=== PATIENT | male | born 1930 | race Caucasian/White ===

== ENCOUNTER 2017-10-14 10:35 | Inpatient (IN) | payer MEDICARE, BC ==
[~2017-10-14] VITALS: Ht 170.2 cm; Wt 69.4 kg
--- NOTE | ~2017-10-14 | CN ---
PATIENT NAME:DOMINICK HERNANDEZ MEDICAL RECORD: [id number] : 34 LOCATION:D. D.2129 ADMIT DATE: 10/14/17 ACCOUNT: [id number] CONSULTING PHYSICIAN: DELVIS MATTHEWS MD REFERRING PHYSICIAN: FARHEEN NIX DO DATE OF CONSULTATION: 10/15/2017 Pulmonary Consultation CONSULT REQUESTING PHYSICIAN: Joseluis Brown DO REASON FOR CONSULTATION: Pneumonia, right lower lobe. HISTORY OF PRESENT ILLNESS: Mr. Hernandez is an 87-year-old gentleman who has a history of heart murmur, remote history of smoking. According to the , he has worsening shortness of breath for the last 2-3 weeks. He was seen in Dr. Brown's office and the chest x-ray showed pneumonia, right lower lobe. Now, he is feeling a little bit better. He has cough without much sputum production. He does not hear himself wheezing. There are no night sweats, no weight loss. REVIEW OF SYSTEMS: Mainly in the history of present illness. PAST MEDICAL HISTORY: 1. Hypertension. 2. Coronary artery disease. 3. History of heart murmur. 4. History of dementia. PAST SURGICAL HISTORY: 1. Cardiac catheterization and stent placement. 2. He has bilateral leg surgery. 3. He has kidney ureteric stent placement. ALLERGIES: There are no known drug allergies. MEDICATIONS: RF Code is reviewed. PERSONAL AND SOCIAL HISTORY: The patient has remote history of smoking. He is a nondrinker. FAMILY HISTORY: Noncontributory. PHYSICAL EXAMINATION: GENERAL: Now, the patient is lying comfortably. He is not in acute distress. VITAL SIGNS: The blood pressure 122/54, pulse is 63, respirations 16, temperature 97.5, SpO2 is 96% on 2 liters nasal cannula. HEENT: Conjunctivae are pink. Sclerae are not icteric. NECK: Supple, no JVD. CHEST: The chest excursion is minimal, but are crackle at the right base. No wheezing. HEART: Rate and rhythm regular with a grade II/ systolic murmur. ABDOMEN: Soft, bowel sounds present. No hepatosplenomegaly. RECTAL: Deferred. EXTREMITIES: No cyanosis, no clubbing, no pedal edema. CENTRAL NERVOUS SYSTEM: The patient is awake and alert. There are no obvious CONSULT REPORT [id number] DOMINICK HERNANDEZ skin abnormalities. The gait was not tested. DIAGNOSTIC STUDIES: Chest radiograph, there are infiltrate in the right lower lobe. The VQ scan is low probability. IMPRESSION: 1. Acute hypoxic respiratory failure. 2. Pneumonia, right lower lobe, most likely community-acquired pneumonia. We doubt aspiration. 3. Ex-smoker, suspect chronic obstructive pulmonary disease. 4. Acute kidney injury on chronic kidney disease. 5. Valvular heart disease, mitral regurgitation. 6. Coronary artery disease. RECOMMENDATION: 1. Continue Levaquin IV, adjust the dose for renal function. 2. Rocephin IV. 3. Follow up labs and chest radiograph. Dr. Brown, thank you for involving me in the care of Mr. Hernandez. TRANSINT:[id number] Voice Confirmation ID: [id number] DOCUMENT ID: [id number] DELVIS MATTHEWS MD at 1110 CC: [id number] DICTATION DATE: 10/15/17 164 WARE TESTER: 10/15/17 1729 ADM IN [place] [address] [place] [address]
[2017-10-14 11:50] LABS: BASOPHILS 0.2 % (0-2); EOSINOPHILS 0.3 % (0-7); HEMATOCRIT 38.3 % (42.0-54.0); HEMOGLOBIN 12.9 g/dL (13.5-17.5); IMMATURE GRANULOCYTES 0.3 % (0-5); LYMPHOCYTES 8.5 % (15-50); MCHC 33.7 g/dL (31.0-37.0); MEAN PLATELET VOLUME 12.3 fL (7.4-10.4); MONOCYTES 8.8 % (2-11); NEUTROPHILS 81.9 % (40-80); PLATELET COUNT 240 10x3/uL (130-400); RBC 4.03 10x6/uL (4.20-6.10); RDW 13.1 % (11.5-14.5); WBC 18.1 10x3/uL (4.8-10.8)
[2017-10-14 12:34] LABS: ALBUMIN 3.3 g/dL (3.4-5.0); CALCIUM 9.5 mg/dL (8.5-10.1); CARBON DIOXIDE 25.5 mmol/L (21.0-32.0); CHLORIDE - SERUM 108 mmol/L (98-107); CKMB 0.5 U/L (0.0-3.6); POTASSIUM - SERUM 4.6 mmol/L (3.5-5.1); PRO BNP 1016 pg/mL (0-450); SODIUM 139 mmol/L (136-145); UREA NITROGEN 34 mg/dL (7-18)
[2017-10-14 12:49] VITALS: BP 101/48
[2017-10-14 12:55] LABS: ALKALINE PHOSPHATASE 55 U/L (46-116); ALT (SGPT) 22 U/L (10-68); BILIRUBIN - TOTAL 0.41 mg/dL (0.2-1.3); CREATININE - SERUM 2.2 mg/dL (0.6-1.3); GLUCOSE 120 mg/dL (74-106); PROTEIN - SERUM 6.7 g/dL (6.4-8.2); eGFR NON AFRICAN AMERICAN 30 mL/min (90-120)
[2017-10-14 12:56] LABS: CALC OSMOLALITY 283 mosm/kg (275-300)
[2017-10-14 12:58] LABS: CREATINE KINASE 35 UL (21-232); TROPONIN-I < 0.017 ng/mL (0.000-0.060)
[2017-10-14 14:00] VITALS: BP 114/56
[2017-10-14 15:00] VITALS: BP 118/77
[2017-10-14 20:48] VITALS: BP 147/60
[2017-10-14 23:50] VITALS: BP 170/59; BMI 24.5
[2017-10-15 01:05] VITALS: BP 127/49; BP 141/75
[2017-10-15 05:15] VITALS: BP 128/58
[2017-10-15 06:25] LABS: BASOPHILS 0.2 % (0-2); EOSINOPHILS 2.9 % (0-7); HEMATOCRIT 35.5 % (42.0-54.0); HEMOGLOBIN 11.8 g/dL (13.5-17.5); IMMATURE GRANULOCYTES 0.3 % (0-5); LYMPHOCYTES 16.6 % (15-50); MCH 31.8 pg (26.0-34.0); MCHC 33.2 g/dL (31.0-37.0); MCV 95.7 fL (80.0-100.0); MEAN PLATELET VOLUME 12.4 fL (7.4-10.4); MONOCYTES 11.5 % (2-11); NEUTROPHILS 68.5 % (40-80); RBC 3.71 10x6/uL (4.20-6.10); RDW 13.3 % (11.5-14.5)
[2017-10-15 06:51] LABS: ANION GAP 10.9 mmol/L (8-16); CALCIUM 8.9 mg/dL (8.5-10.1); CREATININE - SERUM 1.8 mg/dL (0.6-1.3); POTASSIUM - SERUM 3.9 mmol/L (3.5-5.1)
[2017-10-15 06:52] LABS: PLATELET COUNT 182 10x3/uL (130-400); WBC 10.9 10x3/uL (4.8-10.8)
[2017-10-15 08:42] VITALS: BP 155/57
[2017-10-15 12:27] VITALS: BP 122/54
[2017-10-15 13:46] VITALS: Ht 170.2 cm; Wt 69.4 kg
[2017-10-15 16:52] VITALS: BP 143/58
[2017-10-15 20:48] VITALS: BP 141/55
[2017-10-16 05:22] LABS: BASOPHILS 0.5 % (0-2); HEMATOCRIT 35.7 % (42.0-54.0); HEMOGLOBIN 11.7 g/dL (13.5-17.5); IMMATURE GRANULOCYTES 0.5 % (0-5); LYMPHOCYTES 20.7 % (15-50); MCH 31.3 pg (26.0-34.0); MCHC 32.8 g/dL (31.0-37.0); MCV 95.5 fL (80.0-100.0); MONOCYTES 12.8 % (2-11); NEUTROPHILS 61.5 % (40-80); PLATELET COUNT 183 10x3/uL (130-400); RBC 3.74 10x6/uL (4.20-6.10); RDW 13.1 % (11.5-14.5)
[2017-10-16 05:28] LABS: WBC 7.7 10x3/uL (4.8-10.8)
[2017-10-16 05:57] LABS: ALBUMIN 2.9 g/dL (3.4-5.0); ANION GAP 13.1 mmol/L (8-16); BILIRUBIN - TOTAL 0.21 mg/dL (0.2-1.3); CALCIUM 9.1 mg/dL (8.5-10.1); CARBON DIOXIDE 24.8 mmol/L (21.0-32.0); CREATININE - SERUM 1.5 mg/dL (0.6-1.3); MAGNESIUM - SERUM 1.9 mg/dL (1.8-2.4); PHOSPHOROUS 3.2 mg/dL (2.5-4.9); POTASSIUM - SERUM 3.9 mmol/L (3.5-5.1); PROTEIN - SERUM 6.4 g/dL (6.4-8.2); THYROID STIMULATING HORMONE 0.34 uIU/mL (0.36-3.74)
[2017-10-16 06:57] VITALS: BP 141/63
[2017-10-16 09:18] VITALS: BP 164/64
[2017-10-16 12:39] VITALS: BP 144/57
[2017-10-16 16:34] VITALS: BP 149/62
[2017-10-16 21:08] VITALS: BP 148/54
[2017-10-17 01:40] VITALS: BP 119/49
[2017-10-17 05:35] LABS: BASOPHILS 0.4 % (0-2); EOSINOPHILS 7.3 % (0-7); HEMOGLOBIN 10.6 g/dL (13.5-17.5); IMMATURE GRANULOCYTES 0.4 % (0-5); LYMPHOCYTES 17.6 % (15-50); MCHC 33.1 g/dL (31.0-37.0); MCV 93.6 fL (80.0-100.0); MONOCYTES 13.6 % (2-11); NEUTROPHILS 60.7 % (40-80); PLATELET COUNT 174 10x3/uL (130-400); RBC 3.42 10x6/uL (4.20-6.10); WBC 7.1 10x3/uL (4.8-10.8)
[2017-10-17 05:40] VITALS: BP 175/71
[2017-10-17 06:04] LABS: ALBUMIN 2.6 g/dL (3.4-5.0); BILIRUBIN - TOTAL 0.16 mg/dL (0.2-1.3); CALCIUM 8.6 mg/dL (8.5-10.1); CARBON DIOXIDE 24.8 mmol/L (21.0-32.0); CREATININE - SERUM 1.3 mg/dL (0.6-1.3); POTASSIUM - SERUM 3.8 mmol/L (3.5-5.1); PROTEIN - SERUM 5.6 g/dL (6.4-8.2)
[2017-10-17 09:38] VITALS: BP 187/76
[2017-10-17 12:00] VITALS: BP 157/47
[2017-10-17 17:35] VITALS: BP 147/65
[2017-10-17 20:36] VITALS: BP 143/56
[2017-10-18 00:51] VITALS: BP 87/48
[2017-10-18 03:23] LABS: BASOPHILS 0.4 % (0-2); EOSINOPHILS 6.4 % (0-7); HEMATOCRIT 34.4 % (42.0-54.0); HEMOGLOBIN 11.5 g/dL (13.5-17.5); IMMATURE GRANULOCYTES 0.7 % (0-5); LYMPHOCYTES 18.6 % (15-50); MCH 31.1 pg (26.0-34.0); MCHC 33.4 g/dL (31.0-37.0); MEAN PLATELET VOLUME 12.3 fL (7.4-10.4); MONOCYTES 13.5 % (2-11); NEUTROPHILS 60.4 % (40-80); PLATELET COUNT 204 10x3/uL (130-400); RDW 13.1 % (11.5-14.5); WBC 7.6 10x3/uL (4.8-10.8)
[2017-10-18 03:46] LABS: ALBUMIN 2.7 g/dL (3.4-5.0); ANION GAP 11.3 mmol/L (8-16); BILIRUBIN - TOTAL 0.22 mg/dL (0.2-1.3); CALCIUM 8.9 mg/dL (8.5-10.1); CARBON DIOXIDE 27.3 mmol/L (21.0-32.0); CREATININE - SERUM 1.4 mg/dL (0.6-1.3); POTASSIUM - SERUM 3.6 mmol/L (3.5-5.1); PROTEIN - SERUM 6.1 g/dL (6.4-8.2)
[2017-10-18 06:20] VITALS: BP 167/49
[2017-10-18] MEDS ORDERED: LEVAQUIN500 MG PO (07:05)
[2017-10-18] MEDS ORDERED: ALBUTEROL2.5 MG/3 M INH (07:05)
== END 2017-10-18 14:42 | disposition home health service (06) | DRG 682 ==
LOC: D.ER 10:35 → D.EDHOLD 17:03 → D.M2 17:03
PROVIDERS: Family Medicine
DX: N17.9 Acute kidney failure, unspecified (principal); J18.9 Pneumonia, unspecified organism; J96.01 Acute respiratory failure with hypoxia; I34.0 Nonrheumatic mitral (valve) insufficiency; E86.9 Volume depletion, unspecified; F03.90 Unspecified dementia, unspecified severity, without behavioral disturbance, psychotic disturbance, mood disturbance, and anxiety; I25.10 Atherosclerotic heart disease of native coronary artery without angina pectoris; E03.9 Hypothyroidism, unspecified; I12.9 Hypertensive chronic kidney disease with stage 1 through stage 4 chronic kidney disease, or unspecified chronic kidney disease; N18.9 Chronic kidney disease, unspecified; R55 Syncope and collapse; I45.10 Unspecified right bundle-branch block

== ENCOUNTER 2017-12-01 22:54 | Emergency (ER) | payer MEDICARE, BC ==
[~2017-12-01] VITALS: Ht 170.2 cm; Wt 73.6 kg
[~2017-12-01 22:54] MED LIST: ALBUTEROL2.5 MG/3 M INH; LEVAQUIN500 MG PO
[2017-12-01 22:59] VITALS: Ht 170.2 cm; Wt 73.6 kg
[2017-12-01 23:48] LABS: BASOPHILS 0.6 % (0-2); EOSINOPHILS 5.7 % (0-7); HEMATOCRIT 38.9 % (42.0-54.0); HEMOGLOBIN 12.9 g/dL (13.5-17.5); IMMATURE GRANULOCYTES 0.3 % (0-5); MCH 31.5 pg (26.0-34.0); MCHC 33.2 g/dL (31.0-37.0); MCV 95.1 fL (80.0-100.0); MEAN PLATELET VOLUME 12.3 fL (7.4-10.4); MONOCYTES 11.2 % (2-11); NEUTROPHILS 51.2 % (40-80); PLATELET COUNT 216 10x3/uL (130-400); RBC 4.09 10x6/uL (4.20-6.10); RDW 12.9 % (11.5-14.5); WBC 7.1 10x3/uL (4.8-10.8)
[2017-12-02] MEDS ORDERED: LISINOPRIL2.5 MG PO (00:02)
[2017-12-02] MEDS ORDERED: LEVOXYL100 MCG PO (00:02)
[2017-12-02] MEDS ORDERED: PROZAC20 MG PO (00:02)
[2017-12-02] MEDS ORDERED: PROTONIX40 MG PO (00:03)
[2017-12-02] MEDS ORDERED: METOPROLOL TART50 MG PO (00:03)
[2017-12-02] MEDS ORDERED: ZYLOPRIM100 MG PO (00:04)
[2017-12-02] MEDS ORDERED: NORVASC10 MG PO (00:04)
[2017-12-02] MEDS ORDERED: HYDRALAZINE HCL10 MG PO (00:04)
[2017-12-02] MEDS ORDERED: NAMENDA10 MG PO (00:05)
[2017-12-02] MEDS ORDERED: ASPIRIN81 MG PO (00:05)
[2017-12-02] MEDS ORDERED: FENOGLIDE40 MG PO (00:06)
[2017-12-02] MEDS ORDERED: ZANTAC150 MG PO (00:06)
[2017-12-02] MEDS ORDERED: FERROUS SULFAT325 MG PO (00:06)
[2017-12-02] MEDS ORDERED: ARICEPT10 MG PO (00:07)
[2017-12-02] MEDS ORDERED: LIPITOR20 MG PO (00:07)
[2017-12-02] MEDS ORDERED: SEROQUEL50 MG PO (00:07)
[2017-12-02 00:08] LABS: ALBUMIN 3.4 g/dL (3.4-5.0); ANION GAP 9.7 mmol/L (8-16); BILIRUBIN - TOTAL 0.22 mg/dL (0.2-1.3); CALCIUM 9.3 mg/dL (8.5-10.1); CARBON DIOXIDE 29.2 mmol/L (21.0-32.0); CREATININE - SERUM 1.7 mg/dL (0.6-1.3); POTASSIUM - SERUM 3.9 mmol/L (3.5-5.1); PROTEIN - SERUM 6.8 g/dL (6.4-8.2)
[2017-12-02] MEDS ORDERED: TEMAZEPAM30 MG PO (00:08)
[2017-12-02] MEDS ORDERED: MELATONIN10 M1 PO (00:08)
[2017-12-02 00:16] LABS: APPEARANCE CLEAR (CLEAR); BILIRUBIN NEGATIVE (NEGATIVE); COLOR YELLOW (YELLOW); GLUCOSE NEGATIVE (NEGATIVE); KETONE NEGATIVE (NEGATIVE); NITRITE NEGATIVE (NEGATIVE); PROTEIN NEGATIVE (NEGATIVE); SPECIFIC GRAVITY 1.015 (1.005-1.020); UROBILINOGEN NORMAL (NORMAL)
[2017-12-02 00:17] LABS: THYROID STIMULATING HORMONE 0.35 uIU/mL (0.36-3.74)
[2017-12-02 00:55] VITALS: BP 114/66
== END 2017-12-02 00:56 | disposition home or self-care (01) ==
LOC: D.ER 22:54
PROVIDERS: Emergency Medicine
DX: S39.012A Strain of muscle, fascia and tendon of lower back, initial encounter (principal); W18.30XA Fall on same level, unspecified, initial encounter; Y93.89 Activity, other specified; Y92.019 Unspecified place in single-family (private) house as the place of occurrence of the external cause; S16.1XXA Strain of muscle, fascia and tendon at neck level, initial encounter; R00.1 Bradycardia, unspecified; I10 Essential (primary) hypertension; I25.10 Atherosclerotic heart disease of native coronary artery without angina pectoris; F03.90 Unspecified dementia, unspecified severity, without behavioral disturbance, psychotic disturbance, mood disturbance, and anxiety

== ENCOUNTER 2018-06-27 09:29 | Inpatient (IN) | payer MEDICARE, BC ==
[~2018-06-27] VITALS: Ht 170.2 cm; Wt 68.1 kg
[~2018-06-27 09:29] MED LIST changes: +ARICEPT10 MG PO; +ASPIRIN81 MG PO; +FENOGLIDE40 MG PO; +FERROUS SULFAT325 MG PO; +HYDRALAZINE HCL10 MG PO; +LEVOXYL100 MCG PO; +LIPITOR20 MG PO; +LISINOPRIL2.5 MG PO; +MELATONIN10 M1 PO; +METOPROLOL TART50 MG PO; +NAMENDA10 MG PO; +NORVASC10 MG PO; +PROTONIX40 MG PO; +PROZAC20 MG PO; +SEROQUEL50 MG PO; +TEMAZEPAM30 MG PO; +ZANTAC150 MG PO; +ZYLOPRIM100 MG PO
[2018-06-27 10:56] LABS: APPEARANCE CLEAR (CLEAR); BILIRUBIN NEGATIVE (NEGATIVE); COLOR YELLOW (YELLOW); GLUCOSE NEGATIVE (NEGATIVE); KETONE NEGATIVE (NEGATIVE); NITRITE NEGATIVE (NEGATIVE); PROTEIN NEGATIVE (NEGATIVE); UROBILINOGEN NORMAL (NORMAL)
[2018-06-27 11:21] LABS: BASOPHILS 0.4 % (0-2); EOSINOPHILS 2.7 % (0-7); HEMATOCRIT 41.7 % (42.0-54.0); HEMOGLOBIN 13.9 g/dL (13.5-17.5); IMMATURE GRANULOCYTES 0.4 % (0-5); LYMPHOCYTES 14.8 % (15-50); MCH 31.2 pg (26.0-34.0); MCHC 33.3 g/dL (31.0-37.0); MCV 93.7 fL (80.0-100.0); MEAN PLATELET VOLUME 12.6 fL (7.4-10.4); MONOCYTES 10.3 % (2-11); NEUTROPHILS 71.4 % (40-80); RBC 4.45 10x6/uL (4.20-6.10); RDW 13.8 % (11.5-14.5); WBC 11.3 10x3/uL (4.8-10.8)
[2018-06-27 11:26] LABS: PLATELET COUNT 171 10x3/uL (130-400)
[2018-06-27 11:36] LABS: ANION GAP 12.6 mmol/L (8-16); CALCIUM 9.7 mg/dL (8.5-10.1); CARBON DIOXIDE 26.6 mmol/L (21.0-32.0); CREATININE - SERUM 1.5 mg/dL (0.6-1.3); MAGNESIUM - SERUM 2.2 mg/dL (1.8-2.4); POTASSIUM - SERUM 4.2 mmol/L (3.5-5.1)
[2018-06-27 12:00] LABS: BILIRUBIN - TOTAL 0.35 mg/dL (0.2-1.3); PROTEIN - SERUM 6.9 g/dL (6.4-8.2); THYROID STIMULATING HORMONE 0.42 uIU/mL (0.36-3.74)
[2018-06-27 12:22] VITALS: BP 168/63
[2018-06-27 13:47] VITALS: BP 164/48
--- NOTE | 2018-06-27 13:50 | NUR ---
RESTING IN BED. NO C/O. EXPL POC TO S/O: AWAITING BED ASSIGNMENT. VERB UNDER
--- NOTE | 2018-06-27 16:17 | NUR ---
Rehab Prescreening Consult recieved and the chart has been reviewed. He is a new admit today and has several orders pending. Rehab will follow and see how he does with PT/OT and ST to determine his functional needs. Thank you for the referral. Richelle Ugarte RN Clinical Liaison, Rehab
[2018-06-27 16:40] VITALS: BP 182/59
--- NOTE | 2018-06-27 17:30 | NUR ---
NEW PATIENT ADMIT FROM ER. PATIENT ARRIVED TO UNIT VIA STRETCHER AND HOSPITAL PERSONNEL. PATIENT ACCOMPANIED BY SPOUSE. PATIENT IS AWAKE, ALERT AND CONFUSED. IV TO LFA INFUSING NS @ 100ML/HR. VSS. PATIENT DENIES ANY NEEDS OR PAIN. BRIEF CHANGED. WILL CONTINUE WITH PLAN OF CARE.
[2018-06-27 18:02] VITALS: BP 128/59; BMI 23.5
[2018-06-27] MEDS ORDERED: SYNTHROID100 MCG PO (19:20)
[2018-06-27] MEDS ORDERED: CYPROHEPTAD2 MG/5 ML PO (19:21)
[2018-06-27] MEDS ORDERED: STOOL SOFTENER250 MG PO (19:22)
[2018-06-27] MEDS ORDERED: SEROQUEL50 MG PO (19:23)
[2018-06-27] MEDS ORDERED: RANITIDINE HCL150 M1 PO (19:24)
--- NOTE | 2018-06-27 19:37 | NUR ---
EVENING ROUNDS COMPLETED. REPORT RECEIVED. PT LYING IN BED WITH EYES CLOSED, RR EVEN AND UNLABORED. BED IN LOW POSITION. NO S/S OF DISTRESS NOTED. SIDE RAILS UP X2. CALL LIGHT IN REACH. WILL CTM.
[2018-06-27 21:18] VITALS: BP 168/82
--- NOTE | 2018-06-28 03:55 | NUR ---
I have reviewed this patient and I concur with the Shift Assessment completed by the Licensed Practical Nurse today this shift.
[2018-06-28 04:00] VITALS: BP 160/78
--- NOTE | 2018-06-28 05:06 | NUR ---
AFTER EDUCATION PROVIDED TO PT. PT CONTINUES TO REFUSE MORNING LAB DRAWS. PT STATES "THAT DONT MAKE ANY SENSE".
--- NOTE | 2018-06-28 07:58 | NUR ---
REPORT RECEIVED. WILL CONTINUE WITH POC. PT CURRENTLY LYING SUPINE. CALL LIGHT W/I REACH. PT IS RESTING AT THE MOMENT. RR EVEN AND UNLABORED ON RA. LR INFUSING @50ML/HR VIA L.FOR PIV. NO S/S OF DISTRESS NOTED. WILL CTM.
[2018-06-28 08:34] LABS: BASOPHILS 0.4 % (0-2); EOSINOPHILS 4.7 % (0-7); HEMATOCRIT 40.1 % (42.0-54.0); HEMOGLOBIN 13.3 g/dL (13.5-17.5); IMMATURE GRANULOCYTES 0.3 % (0-5); LYMPHOCYTES 21.6 % (15-50); MCH 31.2 pg (26.0-34.0); MCHC 33.2 g/dL (31.0-37.0); MCV 94.1 fL (80.0-100.0); MEAN PLATELET VOLUME 12.9 fL (7.4-10.4); MONOCYTES 7.5 % (2-11); NEUTROPHILS 65.5 % (40-80); PLATELET COUNT 167 10x3/uL (130-400); RBC 4.26 10x6/uL (4.20-6.10); RDW 13.5 % (11.5-14.5); WBC 11.5 10x3/uL (4.8-10.8)
[2018-06-28 08:37] LABS: ANION GAP 13.4 mmol/L (8-16); CALCIUM 9.2 mg/dL (8.5-10.1); CARBON DIOXIDE 25.1 mmol/L (21.0-32.0); CREATININE - SERUM 1.3 mg/dL (0.6-1.3); MAGNESIUM - SERUM 1.8 mg/dL (1.8-2.4)
[2018-06-28 08:42] LABS: POTASSIUM - SERUM 3.5 mmol/L (3.5-5.1)
[2018-06-28 09:24] VITALS: BP 164/33
--- NOTE | 2018-06-28 11:06 | NUR ---
PT CURRENTLY LYING SEMI FOWLERS. CALL LIGHT W/I REACH. BED ALARM TURNED ON. SIDE RAIL UPX3. PT INSTRUCTED TO PRESS CALL LIGHT WHEN NEEDING ASSISTANCE AND THE RISK OF GETTING OUT OF BED ON HIS OWN. PT VERBALIZED UNDERSTANDING. PT DENIES ANY FURTHER NEEDS. WILL CTM.
--- NOTE | 2018-06-28 12:08 | NUR ---
I have reviewed this patient and I concur with the Shift Assessment completed by the Licensed Practical Nurse today this shift.
[2018-06-28 12:32] VITALS: BP 174/65
[2018-06-28 13:26] VITALS: Ht 170.2 cm; Wt 68.1 kg
[2018-06-28 16:05] VITALS: BP 161/70
--- NOTE | 2018-06-28 19:32 | NUR ---
EVENING ROUNDS COMPLETED. REPORT RECEIVED. PT SITTING UP IN BED WITH EYES OPEN, RR EVEN AND UNLABORED. BED IN LOW POSITION. NO S/S OF DISTRESS. ROXI ALARM TURNED ON. INTRODUCED SELF TO PT. PT DENIES FURTHER NEEDS AT THIS TIME. CALL LIGHT IN REACH. WILL CTM.
[2018-06-28 20:00] VITALS: BP 156/63
[2018-06-28 23:56] VITALS: BP 125/63
[2018-06-29 00:16] VITALS: BP 160/58
--- NOTE | 2018-06-29 02:35 | NUR ---
I have reviewed this patient and I concur with the Shift Assessment completed by the Licensed Practical Nurse today this shift.
[2018-06-29 04:25] VITALS: BP 149/58
[2018-06-29 04:58] LABS: BASOPHILS 0.4 % (0-2); EOSINOPHILS 5.9 % (0-7); HEMATOCRIT 36.3 % (42.0-54.0); IMMATURE GRANULOCYTES 0.2 % (0-5); LYMPHOCYTES 16.6 % (15-50); MCH 30.7 pg (26.0-34.0); MCHC 33.1 g/dL (31.0-37.0); MCV 92.8 fL (80.0-100.0); MEAN PLATELET VOLUME 12.7 fL (7.4-10.4); MONOCYTES 10.2 % (2-11); NEUTROPHILS 66.7 % (40-80); PLATELET COUNT 168 10x3/uL (130-400); RBC 3.91 10x6/uL (4.20-6.10); RDW 13.5 % (11.5-14.5)
[2018-06-29 05:06] LABS: WBC 8.5 10x3/uL (4.8-10.8)
[2018-06-29 05:33] LABS: ANION GAP 11.6 mmol/L (8-16); CALCIUM 8.8 mg/dL (8.5-10.1); CARBON DIOXIDE 28.2 mmol/L (21.0-32.0); CREATININE - SERUM 1.5 mg/dL (0.6-1.3); MAGNESIUM - SERUM 1.9 mg/dL (1.8-2.4); POTASSIUM - SERUM 3.8 mmol/L (3.5-5.1)
[2018-06-29 07:49] VITALS: BP 124/62
--- NOTE | 2018-06-29 09:39 | NUR ---
ASSESSMENT DONE. DENIES NEEDS.
[2018-06-29 12:16] VITALS: BP 128/66
--- NOTE | 2018-06-29 14:09 | NUR ---
I have reviewed this patient and I concur with the Shift Assessment completed by the Licensed Practical Nurse today this shift.
[2018-06-29 15:38] VITALS: BP 125/63
--- NOTE | 2018-06-29 17:03 | NUR ---
WITHOUT CHANGES OR DISTRESS NOTED AT THIS TIME. DENIES NEEDS
--- NOTE | 2018-06-29 20:00 | NUR ---
EVENING ROUNDS COMPLETED. REPORT RECEIVED. PT SITTING UP IN BED WITH EYES OPEN, RR EVEN AND UNLABORED. BED IN LOW POSITION. AT BEDSIDE. INTRODUCED SELF TO PT. ASSISTED PT TO AMBULATE TO TOILET. PT MADE IT BACK TO BED AND BED ALARM TURNED BACK ON, SIDE RAILS UP X2. DENIES FURTHER NEEDS AT THIS TIME. CALL LIGHT IN REACH. WILL CTM.
[2018-06-30] VITALS: BP 133/45
--- NOTE | 2018-06-30 02:04 | NUR ---
I have reviewed this patient and I concur with the Shift Assessment completed by the Licensed Practical Nurse today this shift.
[2018-06-30 04:00] VITALS: BP 100/57
[2018-06-30 04:47] LABS: BASOPHILS 0.3 % (0-2); EOSINOPHILS 5.8 % (0-7); HEMATOCRIT 37.2 % (42.0-54.0); HEMOGLOBIN 12.3 g/dL (13.5-17.5); IMMATURE GRANULOCYTES 0.3 % (0-5); LYMPHOCYTES 17.7 % (15-50); MCH 30.8 pg (26.0-34.0); MCHC 33.1 g/dL (31.0-37.0); MCV 93.2 fL (80.0-100.0); MEAN PLATELET VOLUME 12.4 fL (7.4-10.4); NEUTROPHILS 66.9 % (40-80); PLATELET COUNT 169 10x3/uL (130-400); RBC 3.99 10x6/uL (4.20-6.10); RDW 13.6 % (11.5-14.5); WBC 10.1 10x3/uL (4.8-10.8)
[2018-06-30 05:21] LABS: ANION GAP 10.7 mmol/L (8-16); CALCIUM 8.8 mg/dL (8.5-10.1); CARBON DIOXIDE 27.1 mmol/L (21.0-32.0); CREATININE - SERUM 1.4 mg/dL (0.6-1.3); POTASSIUM - SERUM 3.8 mmol/L (3.5-5.1)
--- NOTE | 2018-06-30 07:33 | NUR ---
ROUNDING DONE WITH PATIENT LAYING ON RIGHT SIDE, ROXI ALARM AND BED ALARM IS ON. ON HEART MONITOR SHOWING SR W OCC PVC, HR 56. ON ROOM AIR. RIGHT FA PIV SEEN WITH LR INFUSING AT 100 CC/HR. ON EP WITH K+ 3.8. WILL MONITOR.
[2018-06-30 08:20] VITALS: BP 166/44
[2018-06-30 12:10] VITALS: BP 152/51
--- NOTE | 2018-06-30 13:28 | NUR ---
CLEANED UP FROM INCONT. OF URINE. I DID NOT REPLACE THE DEPENDS THAT WAS ON PATIENT. BLUE CHUX PLACED AND PATIENT IS ROLLED TO RIGHT SIDE FOR COMFORT. ROXI MAT ALARM AND BED ALARM ARE SET.
[2018-06-30 14:52] VITALS: BP 155/51
--- NOTE | 2018-06-30 15:09 | NUR ---
PATIENT CHANGED FROM IN CONT. OF URINE. CLEAN LINENS GIVEN. ROXI MAT AND BED ALARM ON.
--- NOTE | 2018-06-30 17:06 | NUR ---
AT BEDSIDE FOR EVENING MEAL.
--- NOTE | 2018-06-30 18:25 | NUR ---
COMPLETE BED LINEN CHANGE DONE ALONG WITH BATH FOR INCONT. OF URINE. ROXI MAT ALARM AND BED ALARM ARE ON AND SET.
--- NOTE | 2018-06-30 19:24 | NUR ---
INTRODUCED SELF TO PATIENT, RESP EVEN AND UNLABORED. NO S/SX OF DISTRESS AT THIS TIME.
[2018-06-30 20:30] VITALS: BP 148/43
[2018-07-01 00:54] VITALS: BP 144/46
--- NOTE | 2018-07-01 03:58 | NUR ---
PATIENT RESTING QUIETLY WITH EYES CLOSED, RESP EVEN AND UNLABORED. NO S/SX OF DISCOMFORT OR DISTRESS AT THIS TIME.
[2018-07-01 05:41] VITALS: BP 195/70
[2018-07-01 07:24] LABS: BASOPHILS 0.2 % (0-2); EOSINOPHILS 3.3 % (0-7); HEMATOCRIT 35.9 % (42.0-54.0); HEMOGLOBIN 11.9 g/dL (13.5-17.5); IMMATURE GRANULOCYTES 0.5 % (0-5); LYMPHOCYTES 9.1 % (15-50); MCH 30.7 pg (26.0-34.0); MCHC 33.1 g/dL (31.0-37.0); MCV 92.8 fL (80.0-100.0); MEAN PLATELET VOLUME 13.3 fL (7.4-10.4); MONOCYTES 7.8 % (2-11); NEUTROPHILS 79.1 % (40-80); PLATELET COUNT 155 10x3/uL (130-400); RBC 3.87 10x6/uL (4.20-6.10); RDW 13.5 % (11.5-14.5); WBC 10.2 10x3/uL (4.8-10.8)
[2018-07-01 07:32] LABS: ANION GAP 10.3 mmol/L (8-16); CALCIUM 8.9 mg/dL (8.5-10.1); CARBON DIOXIDE 28.4 mmol/L (21.0-32.0); CREATININE - SERUM 1.2 mg/dL (0.6-1.3); MAGNESIUM - SERUM 1.9 mg/dL (1.8-2.4); POTASSIUM - SERUM 3.7 mmol/L (3.5-5.1)
--- NOTE | 2018-07-01 07:38 | NUR ---
REPORT RECEIVED. WILL CONTINUE WITH POC. PT CURRENTLY LYING SUPINE. CALL LIGHT W/I REACH. PT IS AA AND ORIENTED TO SELF ONLY. PT IS BEDFAST. RR EVEN AND UNLABORED ON RA. LR INFUSING @KVO VIA R.FOR PIV. FALL PRECAUTIONS IN PLACE. NO S/S OF DISTRESS NOTED. PT DENIES ANY NEEDS AT THIS TIME. WILL CTM.
[2018-07-01 08:18] VITALS: BP 156/57
--- NOTE | 2018-07-01 12:42 | NUR ---
I have reviewed this patient and I concur with the Shift Assessment completed by the Licensed Practical Nurse today this shift.
[2018-07-01 13:08] VITALS: BP 142/80
--- NOTE | 2018-07-01 14:41 | NUR ---
Per the Edilberto Valdes this patient has refused his OT and ST torres and the family have requested a referral be made to [facility]. Rehab will no longer follow this patient. Richelle Ugarte RN Clinical Liaison, Rehab
--- NOTE | 2018-07-01 15:39 | NUR ---
OT NOTE: PT REQUIRED MAX A WITH SIMPLE HYGIENE TASKS. THANK YOU, FLORES POOL
--- NOTE | 2018-07-01 16:42 | NUR ---
PT CURRENTLY LYING SUPINE. CALL LIGHT W/I REACH. PT IS AA BUT ONLY ORIENTED TO PERSON. PT DENIES ANY NEEDS. NO S/S OF DISTRESS NOTED. FALL PRECAUTIONS IN PLACE. WILL CTM.
--- NOTE | 2018-07-01 19:44 | NUR ---
INTRODUCED SELF TO PATIENT, AT BEDSIDE WANTING TO SHAVE PATIENT. PATIENT RESP EVEN AND UNLABORED, NO S/SX OF DISTRESS OR DISCOMFORT.
[2018-07-01 21:33] VITALS: BP 156/76
[2018-07-02] VITALS (7 sets, daily range): BP systolic 113–159; BP diastolic 60–87
--- NOTE | 2018-07-02 05:05 | NUR ---
PATIENT RESTING QUIETLY WITH EYES CLOSED, RESP EVEN AND UNLABORED AT THIS TIME. NO S/SX OF DISTRESS OR DISCOMFORT NOTED.
[2018-07-02 05:28] LABS: BASOPHILS 0.3 % (0-2); EOSINOPHILS 3.5 % (0-7); HEMATOCRIT 36.2 % (42.0-54.0); IMMATURE GRANULOCYTES 0.2 % (0-5); LYMPHOCYTES 19.2 % (15-50); MCH 30.9 pg (26.0-34.0); MCHC 33.1 g/dL (31.0-37.0); MCV 93.3 fL (80.0-100.0); MEAN PLATELET VOLUME 12.9 fL (7.4-10.4); MONOCYTES 10.9 % (2-11); NEUTROPHILS 65.9 % (40-80); PLATELET COUNT 186 10x3/uL (130-400); RBC 3.88 10x6/uL (4.20-6.10); RDW 13.7 % (11.5-14.5); WBC 9.9 10x3/uL (4.8-10.8)
[2018-07-02 06:04] LABS: ANION GAP 12.4 mmol/L (8-16); CALCIUM 9.1 mg/dL (8.5-10.1); CARBON DIOXIDE 26.2 mmol/L (21.0-32.0); CREATININE - SERUM 1.3 mg/dL (0.6-1.3); MAGNESIUM - SERUM 1.9 mg/dL (1.8-2.4); POTASSIUM - SERUM 3.6 mmol/L (3.5-5.1)
--- NOTE | 2018-07-02 07:05 | NUR ---
RECEIVED REPORT. ASSUMED CARE OF PATIENT. PATIENT RESTING WITH EYES OPEN, CONFUSED. ORIENTED TO NAME. CALL LIGHT WITHIN REACH. IV FLUIDS INFUSING AT KVO. NO DISTRESS. ROXI ALARM TO BED PATENT.
--- NOTE | 2018-07-02 11:26 | MORECARE ---
CASE MANAGEMENT DISCHARGE SUMMARY PATIENT: HUMERA DRAKE UNIT: [id number] ADM DATE: 06/28/18 AGE: 88 : 32 SEX: M ROOM/BED: D.2132 AUTHOR: NELA CHEN PHYSICIAN: REFERRING PHYSICIAN: OBEY ROCHA MD DATE OF SERVICE: 07/02/18 Discharge Plan Patient Name: HUMERA DRAKE [facility] [facility] 1930 Planned Disposition: Group Home Facility Anticipated Discharge Date: 07/02/18 Discharge Date: Expected LOS: 4 Initial Reviewer: [email or web address] Initial Review Date: 06/27/2018 Generated: 07/02/18 12:25 pm Coverage Notice Reviewer: [email or web address] Tala Catherine Notice Issued Date-Time: 07/02/2018 8:50 Notice Type: Patient Choice Letter Notice Delivered To: Patient Relationship to Patient: Developmental Behavioral Physician Name: Delivery Method: HAND - Hand Delivered Jacqueline Days: Prior Verbal Notification: Recipient Understood Notice: Yes Recipient Signature: Yes Med Rec Note Co-signed by Attending: Coverage Notice Comment: [facility] Reviewer: [email or web address] Tala Catherine Notice Issued Date-Time: 07/02/2018 9:00 Notice Type: IM Discharge Notice Notice Delivered To: Patient Relationship to Patient: Developmental Behavioral Physician Name: Delivery Method: HAND - Hand Delivered Jacqueline Days: Prior Verbal Notification: Recipient Understood Notice: Yes Recipient Signature: Yes Med Rec Note Co-signed by Attending: Coverage Notice Comment: Patient Name: HUMERA DRAKE Page [id number] at 1126 All edits/amendments must be made on the electronic document DICTATION DATE: 07/02/18 1125 SPRING CLIPPER: REX 07/02/18 1125 RPT#: [id number] DC DATE: STATUS: ADM IN [place] [address] [place] [address] END OF REPORT
--- NOTE | 2018-07-02 11:30 | NUR ---
PULLED PATIENT UP IN BED. BED ALARMS PATENT. NO DISTRESS. NO FAMILY AT BEDSIDE.
--- NOTE | 2018-07-02 11:33 | MORECARE ---
CASE MANAGEMENT DISCHARGE SUMMARY PATIENT: HUMERA DRAKE UNIT: [id number] ADM DATE: 06/28/18 AGE: 88 : 32 SEX: M ROOM/BED: D.2132 AUTHOR: APRILDOC PHYSICIAN: REFERRING PHYSICIAN: OBEY ROCHA MD DATE OF SERVICE: 07/02/18 Discharge Plan Patient Name: HUMERA DRAKE Facility: [facility]:[place] : 1930 Planned Disposition: Assisted Facility Anticipated Discharge Date: 07/02/18 Discharge Date: Expected LOS: 4 Initial Reviewer: [email or web address] Initial Review Date: 06/27/2018 Generated: 07/02/18 12:33 pm DCPIA - Discharge Planning Initial Assessment Updated by ALONZO: Tripp Catherine on 07/02/18 11:26 am * Is the patient Alert and Oriented? Yes * How many steps to enter\exit or inside your home? * PCP DR. NIX * Pharmacy [facility]. * Preadmission Environment Home with Family * ADLs Partial Dependent * Partial ADLs (Assistance needed) Medication Management Transfers * Equipment Cane Nebulizer Walker Wheelchair * Other Equipment [employer] - MEDICAL EQUIPMENT PROVIDER * List name and contact numbers for known caregivers / representatives who currently or will assist patient after discharge: RYAN DRAKE, SPOUSE, * Verbal permission to speak to the caregivers and representatives has been obtained from the patient. Yes * Community resources currently utilized None * Please name any agencies selected above. NONE * Additional services required to return to the preadmission environment? Yes * Can the patient safely return to the preadmission environment? Yes * Has this patient been hospitalized within the prior 30 days at any hospital? No External Providers External Provider: [facility] Next Contact Date: 07/02/2018 Service Request Date: Service Type: Resolution: Reviewer: Comments: Coverage Notice Reviewer: [email or web address] - Tripp Catherine Notice Issued Date-Time: 07/02/2018 8:50 Notice Type: Patient Choice Letter Notice Delivered To: Patient Relationship to Patient: Grade Setter Name: Delivery Method: HAND - Hand Delivered Jacqueline Days: Prior Verbal Notification: Recipient Understood Notice: Yes Recipient Signature: Yes Med Rec Note Co-signed by Attending: [facility]age [facility] Reviewer: [id number] - Tripp Catherine Notice Issued Date-Time: 07/02/2018 9:00 Notice Type: IM Discharge Notice Notice Delivered To: Patient Relationship to Patient: Grade Setter Name: Delivery Method: HAND - Hand Delivered Jacqueline Days: Prior Verbal Notification: Recipient Understood Notice: Yes Recipient Signature: Yes Med Rec Note Co-signed by Attending: Coverage Notice Comment: Last DP export: 07/02/18 10:25 am Patient Name: HUMERA DRAKE Page [phone] at 1133 All edits/amendments must be made on the electronic document DICTATION DATE: 07/02/181131 EXCELSIOR MACHINE FEEDER: REX 07/02/18 113 RPT#: [id number] DC DATE: STATUS: ADM IN [facility] [address] [place] [address] END OF REPORT
--- NOTE | 2018-07-02 11:59 | MORECARE ---
CASE MANAGEMENT DISCHARGE SUMMARY PATIENT: HUMERA DRAKE UNIT: [id number] ADM DATE: 06/28/18 AGE: 88 : 32 SEX: M ROOM/BED: D.2132 AUTHOR: APRIL,DOC PHYSICIAN: REFERRING PHYSICIAN: OBEY ROCHA MD DATE OF SERVICE: 07/02/18 Discharge Plan Patient Name: HUMERA DRAKE Facility: [facility]:[place] : 1930 Planned Disposition: Residential Facility Anticipated Discharge Date: 07/02/18 Discharge Date: Expected LOS: 4 Initial Reviewer: [email or web address] Initial Review Date: 06/27/2018 Generated: 07/02/18 12:59 pm Comments DCP- Discharge Planning Updated by [email or web address]: Tripp Catherine on 07/02/18 10:[address] Patient Name: HUMERA DRAKE Admission Status: ER Accout number: [id number] Admission Date: 06-28-2018 : 1930 Admission Diagnosis:WEAKNESS Attending: JOSEFINA, Current LOS: 4 Anticipated DC Date: 07-02-2018 Planned Disposition: Residential Facility Primary Insurance: MEDICARE A & B PLANNED EXTERNAL PROVIDER: [facility], MEDICARE REHAB BED Discharge Planning Comments: CM MET WITH PT IN ROOM TO DISCUSS DISCHARGE PLANNING AND NEEDS. PT REPORTS LIVING AT HOME DEPENDENTLY WITH HIS . PT HAS ASSISTANCE WITH MEDICATION MANAGEMENT AND TRANSFERS. PT HAS A CANE, WALKER, WHEELCHAIR AND NEBULIZER FROM [facility]. PT HAS NO OUTSIDE SERVICES ASSISTING IN THE HOME. CM DISCUSSED AVAILABILITY OF HOME HEALTH, REHAB SERVICES AND MEDICAL EQUIPMENT. PT IS IN AGREEMENT WITH REHAB AT [facility]. PT'S SPOUSE TO TRANSPORT HOME AFTER REHAB AT [facility]. LONGTERM FACILITY LISTING PROVIDED, CHOICE FOR [facility] SIGNED. IMPORTANT MESSAGE FROM MEDICARE PROVIDED AND EXPLAINED. CM RECEIVED CALL A SHORT TIME LATER FROM PT'S SPOUSE, RYAN DRAKE, , WHO VERIFIED PLAN FOR REHAB AT [facility], WANTED TO ENSURE THAT EVERYONE COMMUNICATES WITH HER PT HAS DEMENTIA AND HAS TROUBLE REMEMBERING THINGS. CM CALLED [facility], , SPOKE TO DOUGLAS, BED AVAILABLE, DOUGLAS IS FAMILIAR WITH PT SHE HAS DISCUSSED REFERRAL WITH [facility] LAST WEEK; REFERRAL FAXED TO [facility] AT [phone]. CM ASKED FOR ADMISSION DETERMINATION TODAY. CM WAITING ADMISSION DETERMINATION FROM [facility]. Sociology Research Assistant: Tripp Catherine DCPIA - Discharge Planning Initial Assessment Updated by ALONZO: Tripp Catherine on 07/02/18 11:26 am * Is the patient Alert and Oriented? Yes * How many steps to enter\exit or inside your home? * PCP DR. NIX * Pharmacy [facility]. * Preadmission Environment Home with Family * ADLs Partial Dependent * Partial ADLs (Assistance needed) Medication Management Transfers * Equipment Cane Nebulizer Walker Wheelchair * Other Equipment [employer] - MEDICAL EQUIPMENT PROVIDER * List name and contact numbers for known caregivers / representatives who currently or will assist patient after discharge: RYAN DRAKE, SPOUSE, * Verbal permission to speak to the caregivers and representatives has been obtained from the patient. Yes * Community resources currently utilized None * Please name any agencies selected above. NONE * Additional services required to return to the preadmission environment? Yes * Can the patient safely return to the preadmission environment? Yes * Has this patient been hospitalized within the prior 30 days at any hospital? No Coverage Notice Reviewer: [id number] Tala Catherine Notice Issued Date-Time: 07/02/2018 8:50 Notice Type: Patient Choice Letter Notice Delivered To: Patient Relationship to Patient: Lining Closer Name: Delivery Method: HAND - Hand Delivered Jacqueline Days: Prior Verbal Notification: Recipient Understood Notice: Yes Recipient Signature: Yes Med Rec Note Co-signed by Attending: Coverage Notice Comment: [facility] Reviewer: [email or web address] Tala Catherine Notice Issued Date-Time: 07/02/2018 9:00 Notice Type: IM Discharge Notice Notice Delivered To: Patient Relationship to Patient: Lining Closer Name: Delivery Method: HAND - Hand Delivered Jacqueline Days: Prior Verbal Notification: Recipient Understood Notice: Yes Recipient Signature: Yes Med Rec Note Co-signed by Attending: Coverage Notice Comment: Last DP export: 07/02/18 10:33 am Patient Name: HUMERA DRAKE Page [phone] at 1159 All edits/amendments must be made on the electronic document DICTATION DATE: 07/02/181157 DENTAL HYGIENE INSTRUCTOR: REX 07/02/181157 RPT#: [id number] DC DATE: STATUS: ADM IN [facility] [address] [place] [address] END OF REPORT
--- NOTE | 2018-07-02 14:35 | NUR ---
PATIENTS HERE. PATIENT SHAVED. PATIENT SITTING UP IN BED, ALERT. CALL LIGHT WITHIN REACH. NO DISTRESS.
--- NOTE | 2018-07-02 14:40 | NUR ---
Nutrition Follow Up: Cardiac diet with 83% average po intake s/p Speech eval and speech therapist has signed off Last BM 06/30 Pt reports no nutritional requests Reviewed weights with nurse. Pt weighs [address] currently per bed scale [address] following
--- NOTE | 2018-07-02 15:23 | MORECARE ---
CASE MANAGEMENT DISCHARGE SUMMARY PATIENT: HUMERA DRAKE UNIT: [id number] ADM DATE: 06/28/18 AGE: 88 : 32 SEX: M ROOM/BED: D.2132 AUTHOR: APRIL,DOC PHYSICIAN: REFERRING PHYSICIAN: OBEY ROCHA MD DATE OF SERVICE: 07/02/18 Discharge Plan Patient Name: HUMERA DRAKE Facility: [facility]:[place] : 1930 Planned Disposition: Jail Facility Anticipated Discharge Date: 07/02/18 Discharge Date: Expected LOS: 4 Initial Reviewer: [id number] Initial Review Date: 06/27/2018 Generated: 07/02/18 4:22 pm Comments DCP- Discharge Planning Updated by [id number]: Tripp Neely on 07/02/18 2:[address] Patient Name: HUMERA DRAKE Admission Status: ER Accout number: [id number] Admission Date: 06-28-2018 : 1930 Admission Diagnosis:WEAKNESS Attending: JOSEFINA, Current LOS: 4 Anticipated DC Date: 07-02-2018 Planned Disposition: Jail Facility Primary Insurance: MEDICARE A & B PLANNED EXTERNAL PROVIDER: [facility] AND [facility], MEDICARE REHAB BED Discharge Planning Comments: CM MET WITH PT IN ROOM TO DISCUSS DISCHARGE PLANNING AND NEEDS. PT REPORTS LIVING AT HOME DEPENDENTLY WITH HIS . PT HAS ASSISTANCE WITH MEDICATION MANAGEMENT AND TRANSFERS. PT HAS A CANE, WALKER, WHEELCHAIR AND NEBULIZER FROM [facility]. PT HAS NO OUTSIDE SERVICES ASSISTING IN THE HOME. CM DISCUSSED AVAILABILITY OF HOME HEALTH, REHAB SERVICES AND MEDICAL EQUIPMENT. PT IS IN AGREEMENT WITH REHAB AT [facility]. PT'S SPOUSE TO TRANSPORT HOME AFTER REHAB AT [facility]. [facility] FACILITY LISTING PROVIDED, CHOICE FOR [facility] SIGNED. IMPORTANT MESSAGE FROM MEDICARE PROVIDED AND EXPLAINED. CM RECEIVED CALL A SHORT TIME LATER FROM PT'S SPOUSE, RYAN DRAKE, , WHO VERIFIED PLAN FOR REHAB AT [facility], WANTED TO ENSURE THAT EVERYONE COMMUNICATES WITH HER PT HAS DEMENTIA AND HAS TROUBLE REMEMBERING THINGS. CM CALLED [facility], , SPOKE TO DOUGLAS, BED AVAILABLE, DOUGLAS IS FAMILIAR WITH PT SHE HAS DISCUSSED REFERRAL WITH RN NALLELY ORTIZ LAST WEEK; REFERRAL FAXED TO [facility] AT [phone]. CM ASKED FOR ADMISSION DETERMINATION TODAY. CM WAITING ADMISSION DETERMINATION FROM [facility]. Program Proposals Coordinator: Tripp Neely Appended by Tripp Neely on 07/02/2018 15:16 CDT: CM RECEIVED CALL FROM DOUGLAS OF [facility] WHO ASKED IF THE DOCTOR WOULD CONSIDER DIAGNOSIS OF CVA OR [facility] FOR REHAB SERVICES PT IS LISTED WEAKNESS WITH FALLS. DOUGLAS ALSO ASKED WHY PT WAS ON SEROQUEL. CM NOTIFIED [facility] CORRALES WHO INFORMED CM THAT PT DID NOT HAVE A CVA ANT AHT PT'S DIAGNOSIS IS ACUTE ON CHRONIC KIDNEY DISEASE AND WILL REMAIN; SEROQUEL WAS PROBABLY FOR DEMENTIA SYMPTOMS. CM SPOKE TO DOUGLAS OF [facility] WHO REPORTS THEY FOUND DIAGNOSIS OF DEHYDRATION AND WILL USE THAT TO SKILL PT IN FOR REHAB BUT PT WILL HAVE TO BE TAPERED OFF OF SEROQUEL THEIR FACILITY WILL NOT ACCEPT PT TAKING THE MEDICATION WITHOUT TAPER AND PLAN TO DISCONTINUE THE MEDICATION. CM MET WITH PT'S SPOUSE IN ROOM. PT'S SPOUSE WANTS TO TALK TO PT'S PRIMARY DOCTOR, DR. NIX, BEFORE MAKING THE DECISION TO STOP SEROQUEL AND UNDERSTANDS THAT [facility] WANTS TO TAPER THE MEDICATION DOWN TO COMPLETELY STOP, WHICH WILL TAKE APPROXIMATELY 4 WEEKS TO DO SO. PT'S SPOUSE REPORTS PT WILL NOT LIKELY BE IN REHAB THAT LONG AND HER PLAN REMAINS TO BRING PT HOME AFTER REHAB. CM DISCUSSED OTHER OPTIONS FOR REHAB IN [facility] FACILITY. PROVIDER LISTING PROVIDED. SPOUSE SIGNED CONSENT FOR [facility] SECOND CHOICE IN EVENT PT IS DECLINED BY [facility]. [facility] AND CM WAITING PT'S SPOUSE TO GET DETERMINATION FROM DR. NIX IF PT CAN BE TAPERED OF SEROQUEL AT THE HALFWAY IN REHAB. CELSO NEELY, CASE MANAGEMENT DCPIA - Discharge Planning Initial Assessment Updated by [email or web address]: Tripp Neely on 07/02/18 11:26 am * Is the patient Alert and Oriented? Yes * How many steps to enter\exit or inside your home? * PCP DR. NIX * Pharmacy [facility]. * Preadmission Environment Home with Family * ADLs Partial Dependent * Partial ADLs (Assistance needed) Medication Management Transfers * Equipment Cane Nebulizer Walker Wheelchair * Other Equipment [employer] - MEDICAL EQUIPMENT PROVIDER * List name and contact numbers for known caregivers / representatives who currently or will assist patient after discharge: RYAN DRAKE, SPOUSE, * Verbal permission to speak to the caregivers and representatives has been obtained from the patient. Yes * Community resources currently utilized None * Please name any agencies selected above. NONE * Additional services required to return to the preadmission environment? Yes * Can the patient safely return to the preadmission environment? Yes * Has this patient been hospitalized within the prior 30 days at any hospital? No Coverage Notice Reviewer: [id number] Tala Neely Notice Issued Date-Time: 07/02/2018 8:50 Notice Type: Patient Choice Letter Notice Delivered To: Patient Relationship to Patient: Soaking Tank Worker Name: Delivery Method: HAND - Hand Delivered Jacqueline Days: Prior Verbal Notification: Recipient Understood Notice: Yes Recipient Signature: Yes Med Rec Note Co-signed by Attending: Coverage Notice Comment: [facility] Reviewer: [id number] Tala Neely Notice Issued Date-Time: 07/02/2018 9:00 Notice Type: IM Discharge Notice Notice Delivered To: Patient Relationship to Patient: Soaking Tank Worker Name: Delivery Method: HAND - Hand Delivered Jacqueline Days: Prior Verbal Notification: Recipient Understood Notice: Yes Recipient Signature: Yes Med Rec Note Co-signed by Attending: Coverage Notice Comment: Last DP export: 07/02/18 10:59 am Patient Name: HUMERA DRAKE Page [id number] at 1523 All edits/amendments must be made on the electronic document DICTATION DATE: 07/02/181521 BUGGY DRIVER: REX 07/02/181521 RPT#: [id number] DC DATE: STATUS: ADM IN [facility] [address] [place] [address] END OF REPORT
--- NOTE | 2018-07-02 15:42 | NUR ---
OT NOTE: BED MOB WITH MIN/MOD ASSIST. STATIC SITTING BALANCE ON EDGE OF BED WITH SPV; ABLE TO IFRAH GOWN WITH MOD ASSIST. IN ROOM AMBULATION WITH RW AND MOD ASSIST DUE TO UNSTEADY GAIT. PT PERFORMED BETTER ONCE HE WAS IN OPEN HALLWAY, BUT VERY POOR BALANCE DURING IN ROOM AMBULATION. ANGELIA LESTER, OTR/L
--- NOTE | 2018-07-02 16:52 | NUR ---
OT NOTE: PT COMPLETED BED MOB WITH MOD/MAX A. PT COMPLETED EOB SITTING BALANCE WITH MOD A. PT COMPLETED SIMPLE GROOMING AT EOB WITH MOD A, PT REQUIRED MAX VERBAL CUES SECONDARY TO DEMENTIA . THANK YOU, FLORES POOL
--- NOTE | 2018-07-02 17:15 | NUR ---
PATIENT RESTING WITH EYES CLOSED. HAS JUST ARRIVED TO HELP PATIENT EAT PM MEAL. CALL LIGHT WITHIN REACH. NO DISTRESS.
--- NOTE | 2018-07-02 19:36 | NUR ---
PT IN BED LOW POSITION, EYES OPEN, NO IMMEDIATE NEEDS NOTED, FLUIDS AND CALL LIGHT WITHIN REACH, INTRODUCTION TO PT AT BEDSIDE REPORT
--- NOTE | 2018-07-03 02:40 | NUR ---
PT RESTING IN BED, LOW POSITION, EYES CLOSED, AROUSES EASILY TO VOICE, NO IMMEDIATE NEEDS NOTED, FLUIDS AND CALL LIGHT WITHIN REACH
[2018-07-03 04:09] VITALS: BP 150/41
--- NOTE | 2018-07-03 08:20 | NUR ---
RESUMING PT CARE, PT IS LAYING IN BED WITH EYES OPEN AND RESPIRATIONS EVEN AND UNLABORED. SEEMS CONFUSED THIS MORNING, UNABLE TO ANSWER ANY QUESTIONS. SPOUSE IS AT BEDSIDE AND WILL BE HERE TO ASSIST PT WITH FEEDINGS. BED IS IN LOWEST POSITION WITH RAILS UP X2, BED ALARM ACTIVE. CALL LIGHT IN REACH, WILL CONTINUE TO MONITOR AND FOLLOW PLAN OF CARE.
--- NOTE | 2018-07-03 09:44 | NUR ---
I have reviewed this patient and I concur with the Shift Assessment completed by the Licensed Practical Nurse today this shift.
[2018-07-03 09:45] VITALS: BP 180/58
--- NOTE | 2018-07-03 12:43 | NUR ---
OT NOTE: PT SLIGHTLY MORE LETHARGIC TODAY. INCREASED DIFFICULTY WITH COMMANDS, POSSIBLY DUE TO LETHARGY. MAX ASSIST WITH BED MOB; ABLE TO SIT UP ON EDGE OF BED WITHOUT ASSIST, HOWEVERR, CONTINUALLY TRYING TO LIE DOWN. MOD ASSIST FOR SIT TO STAND; MOD ASSIST FOR WALKER MGMT FOR IN ROOM AMBULATION. MOD ASSIST FOR DONNING AND DOFFING GOWN; MOD ASSIST TO IFRAH / DOFF SOCKS. ABLE TO WASH FACE WITH CLOTH AND MIN ASSIST.. MOD CUES TO STAY FOCUSED ON TASKS. ANGELIA LESTER, OTR/L
--- NOTE | 2018-07-03 13:35 | MORECARE ---
CASE MANAGEMENT DISCHARGE SUMMARY PATIENT: HUMERA DRAKE UNIT: [id number] ADM DATE: 06/28/18 AGE: 88 : 32 SEX: M ROOM/BED: D.2132 AUTHOR: APRIL,DOC PHYSICIAN: REFERRING PHYSICIAN: OBEY ROCHA MD DATE OF SERVICE: 07/03/18 Discharge Plan Patient Name: HUMERA DRAKE Facility: [facility]:[place] : 1930 Planned Disposition: Senior Care Facility Anticipated Discharge Date: 07/03/18 Discharge Date: Expected LOS: 5 Initial Reviewer: [id number] Initial Review Date: 06/27/2018 Generated: 07/03/18 2:35 pm Comments DCP- Discharge Planning Updated by [id number]: Tripp Neely on 07/02/18 2:[address] Patient Name: HUMERA DRAKE Admission Status: ER Accout number: [id number] Admission Date: 06-28-2018 : 1930 Admission Diagnosis:WEAKNESS Attending: JOSEFINA, Current LOS: 4 Anticipated DC Date: 07-02-2018 Planned Disposition: Senior Care Facility Primary Insurance: MEDICARE A & B PLANNED EXTERNAL PROVIDER: [facility], MEDICARE REHAB BED Discharge Planning Comments: CM MET WITH PT IN ROOM TO DISCUSS DISCHARGE PLANNING AND NEEDS. PT REPORTS LIVING AT HOME DEPENDENTLY WITH HIS . PT HAS ASSISTANCE WITH MEDICATION MANAGEMENT AND TRANSFERS. PT HAS A CANE, WALKER, WHEELCHAIR AND NEBULIZER FROM [facility]. PT HAS NO OUTSIDE SERVICES ASSISTING IN THE HOME. CM DISCUSSED AVAILABILITY OF HOME HEALTH, REHAB SERVICES AND MEDICAL EQUIPMENT. PT IS IN AGREEMENT WITH REHAB AT [facility]. PT'S SPOUSE TO TRANSPORT HOME AFTER REHAB AT [facility]. [facility] FACILITY LISTING PROVIDED, CHOICE FOR [facility] SIGNED. IMPORTANT MESSAGE FROM MEDICARE PROVIDED AND EXPLAINED. CM RECEIVED CALL A SHORT TIME LATER FROM PT'S SPOUSE, RYAN DRAKE, , WHO VERIFIED PLAN FOR REHAB AT [facility], WANTED TO ENSURE THAT EVERYONE COMMUNICATES WITH HER PT HAS DEMENTIA AND HAS TROUBLE REMEMBERING THINGS. CM CALLED [facility], , SPOKE TO DOUGLAS, BED AVAILABLE, DOUGLAS IS FAMILIAR WITH PT SHE HAS DISCUSSED REFERRAL WITH RN NALLELY ORTIZ LAST WEEK; REFERRAL FAXED TO [facility] AT [phone]. CM ASKED FOR ADMISSION DETERMINATION TODAY. CM WAITING ADMISSION DETERMINATION FROM [facility]. Inseam Trimming Machine Operator: Tripp Neely Appended by Tripp Neely on 07/02/2018 15:16 CDT: CM RECEIVED CALL FROM DOUGLAS OF [facility] WHO ASKED IF THE DOCTOR WOULD CONSIDER DIAGNOSIS OF CVA OR [facility] FOR REHAB SERVICES PT IS LISTED WEAKNESS WITH FALLS. DOUGLAS ALSO ASKED WHY PT WAS ON SEROQUEL. CM NOTIFIED [facility] CORRALES WHO INFORMED CM THAT PT DID NOT HAVE A CVA ANT AHT PT'S DIAGNOSIS IS ACUTE ON CHRONIC KIDNEY DISEASE AND WILL REMAIN; SEROQUEL WAS PROBABLY FOR DEMENTIA SYMPTOMS. CM SPOKE TO DOUGLAS OF [facility] WHO REPORTS THEY FOUND DIAGNOSIS OF DEHYDRATION AND WILL USE THAT TO SKILL PT IN FOR REHAB BUT PT WILL HAVE TO BE TAPERED OFF OF SEROQUEL THEIR FACILITY WILL NOT ACCEPT PT TAKING THE MEDICATION WITHOUT TAPER AND PLAN TO DISCONTINUE THE MEDICATION. CM MET WITH PT'S SPOUSE IN ROOM. PT'S SPOUSE WANTS TO TALK TO PT'S PRIMARY DOCTOR, DR. NIX, BEFORE MAKING THE DECISION TO STOP SEROQUEL AND UNDERSTANDS THAT [facility] WANTS TO TAPER THE MEDICATION DOWN TO COMPLETELY STOP, WHICH WILL TAKE APPROXIMATELY 4 WEEKS TO DO SO. PT'S SPOUSE REPORTS PT WILL NOT LIKELY BE IN REHAB THAT LONG AND HER PLAN REMAINS TO BRING PT HOME AFTER REHAB. CM DISCUSSED OTHER OPTIONS FOR REHAB IN [facility]AC[facility]. PROVIDER LISTING PROVIDED. SPOUSE SIGNED CONSENT FOR [facility] SECOND CHOICE IN EVENT PT IS DECLINED BY [facility]. [facility] AND CM WAITING PT'S SPOUSE TO GET DETERMINATION FROM DR. NIX IF PT CAN BE TAPERED OF SEROQUEL AT THE RETIREMENT IN REHAB. CELSO NEELY, CASE MANAGEMENT DCPIA - Discharge Planning Initial Assessment Updated by [id number]: Tripp Neely on 07/02/18 11:26 am * Is the patient Alert and Oriented? Yes * How many steps to enter\exit or inside your home? * PCP DR. NIX * Pharmacy [facility]. * Preadmission Environment Home with Family * ADLs Partial Dependent * Partial ADLs (Assistance needed) Medication Management Transfers * Equipment Cane Nebulizer Walker Wheelchair * Other Equipment [employer] - MEDICAL EQUIPMENT PROVIDER * List name and contact numbers for known caregivers / representatives who currently or will assist patient after discharge: RYAN DRAKE, SPOUSE, * Verbal permission to speak to the caregivers and representatives has been obtained from the patient. Yes * Community resources currently utilized None * Please name any agencies selected above. NONE * Additional services required to return to the preadmission environment? Yes * Can the patient safely return to the preadmission environment? Yes * Has this patient been hospitalized within the prior 30 days at any hospital? No External Providers External Provider: [facility] Next Contact Date: 07/03/2018 Service Request Date: Service Type: Resolution: Reviewer: Comments: Coverage Notice Reviewer: [id number] Neely Notice Issued Date-Time: 07/02/2018 8:50 Notice Type: Patient Choice Letter Notice Delivered To: Patient Relationship to Patient: Lpn Rn Name: Delivery Method: HAND - Hand Delivered Jacqueline Days: Prior Verbal Notification: Recipient Understood Notice: Yes Recipient Signature: Yes Med Rec Note Co-signed by Attending: Coverage Notice Comment: [facility] Reviewer: [id number] Neely Notice Issued Date-Time: 07/02/2018 9:00 Notice Type: IM Discharge Notice Notice Delivered To: Patient Relationship to Patient: Lpn Rn Name: Delivery Method: HAND - Hand Delivered Jacqueline Days: Prior Verbal Notification: Recipient Understood Notice: Yes Recipient Signature: Yes Med Rec Note Co-signed by Attending: Coverage Notice Comment: Reviewer: ALONZO Neely Notice Issued Date-Time: 07/02/2018 15:00 Notice Type: Patient Choice Letter Notice Delivered To: Family Member Relationship to Patient: Spouse Lpn Rn Name: RYAN DRAKE Delivery Method: HAND - Hand Delivered Jacqueline Days: Prior Verbal Notification: Recipient Understood Notice: Yes Recipient Signature: Yes Med Rec Note Co-signed by Attending: Coverage Notice Comment: Last DP export: 07/02/18 2:22 pm Patient Name: HUMERA DRAKE Page 56215 at 1335 All edits/amendments must be made on the electronic document DICTATION DATE: 07/03/18 1332 MASSAGE THERAPY INSTRUCTOR: REX 07/03/18 1333 RPT#: [id number] DC DATE: STATUS: ADM IN [facility] [address] [place] [address] END OF REPORT
--- NOTE | 2018-07-03 13:44 | MORECARE ---
CASE MANAGEMENT DISCHARGE SUMMARY PATIENT: HUMERA DRAKE UNIT: [id number] ADM DATE: 06/28/18 AGE: 88 : 32 SEX: M ROOM/BED: D.2132 AUTHOR: APRIL,DOC PHYSICIAN: REFERRING PHYSICIAN: OBEY ROCHA MD DATE OF SERVICE: 07/03/18 Discharge Plan Patient Name: HUMERA DRAKE Facility: [facility]:[place] : 1930 Planned Disposition: Snf Facility Anticipated Discharge Date: 07/03/18 Discharge Date: Expected LOS: 5 Initial Reviewer: [id number] Initial Review Date: 06/27/2018 Generated: 07/03/18 2:43 pm Comments DCP- Discharge Planning Updated by [id number]: Tripp Neely on 07/03/18 12:[address] Patient Name: HUMREA DRAKE Encounter No: [id number] : 1930 Primary Insurance: MEDICARE A & B Anticipated DC Date: 07-03-2018 Planned Disposition: Snf Facility External Planned Provider: [facility], MEDICARE REHAB BED DCP follow-up note: CM SPOKE TO PT'S SPOUSE AT [facility] AT ABOUT 1315 HOURS; PT'S SPOUSE ADVISED THAT SHE SPOKE TO DR. INX, PT'S PCP, AND HE WAS OK WITH TAPER OF SEROQUEL AT [facility]. PT'S SPOUSE INFORMED CM THAT SHE WOULD LIKE CM TO TRY REFERRAL TO [facility] FIRST AND IF THEY WILL NOT ACCEPT PT, THEN SHE WILL LET PT GO TO REHAB AT [facility] WITH TAPER OF SEROQUEL. CM NOTIFIED ARUN OF [facility] OF REFERRAL, [facility] MAY CONSIDER PT ON SEROQUEL; CM FAXED REFERRAL INFORMATION TO [facility] AT [phone]. CM WAITING ADMISSION FROM [facility]. PT'S SPOUSE STATES THAT IF DECLINED BY [facility], PT WILL GO TO [facility] AND CAN HAVE SEROQUEL TAPER PER HER CONVERSATION WITH PT'S PCP, DR. FARHEEN NIX. Tripp Neely, CASE MANAGEMENT DCP- Discharge Planning Updated by [id number]: Tripp Neely on 07/02/18 2:[address] Patient Name: HUMERA DRAKE Admission Status: ER Accout number: [id number] Admission Date: 06-28-2018 : 1930 Admission Diagnosis:WEAKNESS Attending: JOSEFINA Current LOS: 4 Anticipated DC Date: 07-02-2018 Planned Disposition: Snf Facility Primary Insurance: MEDICARE A & B PLANNED EXTERNAL PROVIDER: [facility], MEDICARE REHAB BED Discharge Planning Comments: CM MET WITH PT IN ROOM TO DISCUSS DISCHARGE PLANNING AND NEEDS. PT REPORTS LIVING AT HOME DEPENDENTLY WITH HIS . PT HAS ASSISTANCE WITH MEDICATION MANAGEMENT AND TRANSFERS. PT HAS A CANE, WALKER, WHEELCHAIR AND NE[facility]ULIZER [facility]. PT HAS NO OUTSIDE SERVICES ASSISTING IN THE HOME. CM DISCUSSED AVAILABILITY OF HOME HEALTH, REHAB SERVICES AND MEDICAL EQUIPMENT. PT IS IN AGREEMENT WITH REHAB AT [facility]. PT'S SPOUSE TO TRANSPORT HOME AFTER REHAB AT [facility]. [facility] FACILITY LISTING PROVIDED, CHOICE FOR [facility] SIGNED. IMPORTANT MESSAGE FROM MEDICARE PROVIDED AND EXPLAINED. CM RECEIVED CALL A SHORT TIME LATER FROM PT'S SPOUSE, RYAN DRAKE, , WHO VERIFIED PLAN FOR REHAB AT [facility], WANTED TO ENSURE THAT EVERYONE COMMUNICATES WITH HER PT HAS DEMENTIA AND HAS TROUBLE REMEMBERING THINGS. CM CALLED [facility], , SPOKE TO DOUGLAS, BED AVAILABLE, DOUGLAS IS FAMILIAR WITH PT SHE HAS DISCUSSED REFERRAL WITH RN NALLELY ORTIZ LAST WEEK; REFERRAL FAXED TO [facility] AT [phone]. CM ASKED FOR ADMISSION DETERMINATION TODAY. CM WAITING ADMISSION DETERMINATION FROM [facility]. Guard Sergeant: Tripp Neely Appended by Tripp Neely on 07/02/2018 15:16 CDT: CM RECEIVED CALL FROM DOUGLAS OF [facility] WHO ASKED IF THE DOCTOR WOULD CONSIDER DIAGNOSIS OF CVA OR [facility] FOR REHAB SERVICES PT IS LISTED WEAKNESS WITH FALLS. DOUGLAS ALSO ASKED WHY PT WAS ON SEROQUEL. CM NOTIFIED PRATEEK CORRALES WHO INFORMED CM THAT PT DID NOT HAVE A CVA ANT AHT PT'S DIAGNOSIS IS ACUTE ON CHRONIC KIDNEY DISEASE AND WILL REMAIN; SEROQUEL WAS PROBABLY FOR DEMENTIA SYMPTOMS. CM SPOKE TO DOUGLAS OF [facility] WHO REPORTS THEY FOUND DIAGNOSIS OF DEHYDRATION AND WILL USE THAT TO SKILL PT IN FOR REHAB BUT PT WILL HAVE TO BE TAPERED OFF OF SEROQUEL THEIR FACILITY WILL NOT ACCEPT PT TAKING THE MEDICATION WITHOUT TAPER AND PLAN TO DISCONTINUE THE MEDICATION. CM MET WITH PT'S SPOUSE IN ROOM. PT'S SPOUSE WANTS TO TALK TO PT'S PRIMARY DOCTOR, DR. NIX, BEFORE MAKING THE DECISION TO STOP SEROQUEL AND UNDERSTANDS THAT [facility] WANTS TO TAPER THE MEDICATION DOWN TO COMPLETELY STOP, WHICH WILL TAKE APPROXIMATELY 4 WEEKS TO DO SO. PT'S SPOUSE REPORTS PT WILL NOT LIKELY BE IN REHAB THAT LONG AND HER PLAN REMAINS TO BRING PT HOME AFTER REHAB. CM DISCUSSED OTHER OPTIONS FOR REHAB IN [facility] FACILITY. PROVIDER LISTING PROVIDED. SPOUSE SIGNED CONSENT FOR [facility] SECOND CHOICE IN EVENT PT IS DECLINED BY [facility]. [facility] AND CM WAITING PT'S SPOUSE TO GET DETERMINATION FROM DR. NIX IF PT CAN BE TAPERED OF SEROQUEL AT THE HALFWAY IN REHAB. CELSO NEELY, CASE MANAGEMENT DCPIA - Discharge Planning Initial Assessment Updated by [id number]: Tripp Neely on 07/02/18 11:26 am * Is the patient Alert and Oriented? Yes * How many steps to enter\exit or inside your home? * PCP DR. NIX * Pharmacy [facility]. * Preadmission Environment Home with Family * ADLs Partial Dependent * Partial ADLs (Assistance needed) Medication Management Transfers * Equipment Cane Nebulizer Walker Wheelchair * Other Equipment [employer] - MEDICAL EQUIPMENT PROVIDER * List name and contact numbers for known caregivers / representatives who currently or will assist patient after discharge: RYAN DRAKE, SPOUSE, * Verbal permission to speak to the caregivers and representatives has been obtained from the patient. Yes * Community resources currently utilized None * Please name any agencies selected above. NONE * Additional services required to return to the preadmission environment? Yes * Can the patient safely return to the preadmission environment? Yes * Has this patient been hospitalized within the prior 30 days at any hospital? No Coverage Notice Reviewer: [id number] Neely Notice Issued Date-Time: 07/02/2018 15:00 Notice Type: Patient Choice Letter Notice Delivered To: Family Member Relationship to Patient: Spouse Supervisor Wet Room Name: RYAN DRAKE Delivery Method: HAND - Hand Delivered Jacqueline Days: Prior Verbal Notification: Recipient Understood Notice: Yes Recipient Signature: Yes Med Rec Note Co-signed by Attending: Coverage Notice Comment: Reviewer: [id number] Neely Notice Issued Date-Time: 07/02/2018 8:50 Notice Type: Patient Choice Letter Notice Delivered To: Patient Relationship to Patient: Supervisor Wet Room Name: Delivery Method: HAND - Hand Delivered Jacqueline Days: Prior Verbal Notification: Recipient Understood Notice: Yes Recipient Signature: Yes Med Rec Note Co-signed by Attending: Coverage Notice Comment: [facility] Reviewer: [id number] Tala Neely Notice Issued Date-Time: 07/02/2018 9:00 Notice Type: IM Discharge Notice Notice Delivered To: Patient Relationship to Patient: Supervisor Wet Room Name: Delivery Method: HAND - Hand Delivered Jacqueline Days: Prior Verbal Notification: Recipient Understood Notice: Yes Recipient Signature: Yes Med Rec Note Co-signed by Attending: Coverage Notice Comment: Last DP export: 07/03/18 12:35 p Patient Name: HUMERA DRAKE Page [id number] at 1344 All edits/amendments must be made on the electronic document DICTATION DATE: 07/03/18 1343 SCHOOL CROSSING GUARD SUPERVISOR: REX 07/03/18 1343 RPT#: [id number] DC DATE: STATUS: ADM IN [facility] [address] [place] [address] END OF REPORT
--- NOTE | 2018-07-03 15:50 | NUR ---
OT NOTE: PT COMPLETED GROOMING AND HYGIENE TASKS WITH ANGELA Beebe. PT COMPLETED BED MOB IWTH ANGELA Beebe, THANK YOU, FLORES POOL
[2018-07-03 15:52] VITALS: BP 149/89
--- NOTE | 2018-07-03 16:48 | MORECARE ---
CASE MANAGEMENT DISCHARGE SUMMARY PATIENT: HUMERA DRAKE UNIT: [id number] ADM DATE: 06/28/18 AGE: 88 : 32 SEX: M ROOM/BED: D.2132 AUTHOR: APRILDOC PHYSICIAN: REFERRING PHYSICIAN: OBEY ROCHA MD DATE OF SERVICE: 07/03/18 Discharge Plan Patient Name: HUMERA DRAKE Facility: [facility]:[place] : 1930 Planned Disposition: Long Term Facility Anticipated Discharge Date: 07/04/18 Discharge Date: Expected LOS: 6 Initial Reviewer: [id number] Initial Review Date: 06/27/2018 Generated: 07/03/18 5:48 pm Comments DCP- Discharge Planning Updated by [email or web address]: Tripp Neely on 07/03/18 3:[address] Patient Name: HUMERA DRAKE Admission Status: ER Accout number: [id number] Admission Date: 06-28-2018 : 1930 Admission Diagnosis:WEAKNESS Attending: JOSEFINA, Current LOS: 5 Anticipated DC Date: 07-04-2018 Planned Disposition: Long Term Facility Primary Insurance: MEDICARE A & B PLANNED EXTERNAL PROVIDER: [facility], MEDICARE REHAB BED Discharge Planning Comments: CM RECEIVED CALL FROM ARUN OF [facility], THEY WILL NOT ACCEPT TODAY IT IS TOO LATE, WILL ACCEPT TOMORROW AND INFORMATION TECHNOLOGY PROGRAM MANAGER AT 0800 [place]. ARUN HAS NOTIFIED PT'S SPOUSE WHO IS ALSO IN AGREEMENT WITH PLAN. EXHIBIT ELECTRICIAN NURSE NOTIFIED. FOR DISCHARGE 07-04-18, FAX DISCHARGE INFORMATION TO [facility] AT [phone]. CALL NURSE REPORT TO [facility] AT [phone]. [facility] TO INFORMATION TECHNOLOGY PROGRAM MANAGER [place] AT 0800 AM. Head Men'S Tennis Coach: Tripp Neely DCP- Discharge Planning Updated by [email or web address]: Tripp Neely on 07/03/18 12:[address] Patient Name: HUMERA DRAKE Encounter No: [id number] : 1930 Primary Insurance: MEDICARE A & B Anticipated DC Date: 07-03-2018 Planned Disposition: Long Term Facility External Planned Provider: [facility], MEDICARE REHAB BED DCP follow-up note: CM SPOKE TO PT'S SPOUSE AT NURSES STATION AT ABOUT 1315 HOURS; PT'S SPOUSE ADVISED THAT SHE SPOKE TO DR. NIX, PT'S PCP, AND HE WAS OK WITH TAPER OF SEROQUEL AT [facility]. PT'S SPOUSE INFORMED CM THAT SHE WOULD LIKE CM TO TRY REFERRAL TO [facility] FIRST AND IF THEY WILL NOT ACCEPT PT, THEN SHE WILL LET PT GO TO REHAB AT [facility] WITH TAPER OF SEROQUEL. CM NOTIFIED ARUN MARRUFO [facility] OF REFERRAL, [facility] MAY CONSIDER PT ON SEROQUEL; CM FAXED REFERRAL INFORMATION TO [facility] AT [phone]. CM WAITING ADMISSION FROM [facility]. PT'S SPOUSE STATES THAT IF DECLINED BY [facility], PT WILL GO TO [facility] AND CAN HAVE SEROQUEL TAPER PER HER CONVERSATION WITH PT'S PCP, DR. FARHEEN NIX. Tripp Neely, CASE MANAGEMENT DCP- Discharge Planning Updated by [id number]: Tripp Neely on 07/02/18 2:[address] Patient Name: HUMERA DRAKE Admission Status: ER Accout number: [id number] Admission Date: 06-28-2018 : 1930 Admission Diagnosis:WEAKNESS Attending: JOSEFINA Current LOS: 4 Anticipated DC Date: 07-02-2018 Planned Disposition: Long Term Facility Primary Insurance: MEDICARE A & B PLANNED EXTERNAL PROVIDER: [facility] Discharge Planning Comments: CM MET WITH PT IN ROOM TO DISCUSS DISCHARGE PLANNING AND NEEDS. PT REPORTS LIVING AT HOME DEPENDENTLY WITH HIS . PT HAS ASSISTANCE WITH MEDICATION MANAGEMENT AND TRANSFERS. PT HAS A CANE, WALKER, WHEELCHAIR AND NEBULIZER FROM [facility]. PT HAS NO OUTSIDE SERVICES ASSISTING IN THE HOME. CM DISCUSSED AVAILABILITY OF HOME HEALTH, REHAB SERVICES AND MEDICAL EQUIPMENT. PT IS IN AGREEMENT WITH REHAB AT [facility]. PT'S SPOUSE TO TRANSPORT HOME AFTER REHAB AT [facility]. DETENTION FACILITY LISTING PROVIDED, CHOICE FOR [facility] SIGNED. IMPORTANT MESSAGE FROM MEDICARE PROVIDED AND EXPLAINED. CM RECEIVED CALL A SHORT TIME LATER FROM PT'S SPOUSE, RYAN DRAKE, , WHO VERIFIED PLAN FOR REHAB AT [facility], WANTED TO ENSURE THAT EVERYONE COMMUNICATES WITH HER PT HAS DEMENTIA AND HAS TROUBLE REMEMBERING THINGS. CM CALLED [facility], , SPOKE TO DOUGLAS, BED AVAILABLE, DOUGLAS IS FAMILIAR WITH PT SHE HAS DISCUSSED REFERRAL WITH RN [facility] LAST WEEK; REFERRAL FAXED TO [facility] AT [phone]. CM ASKED FOR ADMISSION DETERMINATION TODAY. CM [facility] Head Men'S Tennis Coach: Tripp Neely Appended by Tripp Neely on 07/02/2018 15:16 CDT: CM RECEIVED CALL FROM DOUGLAS OF [facility] WHO ASKED IF THE DOCTOR WOULD CONSIDER DIAGNOSIS OF CVA OR [facility] FOR REHAB SERVICES PT IS LISTED WEAKNESS WITH FALLS. DOUGLAS ALSO ASKED WHY PT WAS ON SEROQUEL. CM NOTIFIED [facility] WHO INFORMED CM THAT PT DID NOT HAVE A CVA ANT T PT'S DIAGNOSIS IS ACUTE ON CHRONIC KIDNEY DISEASE AND WILL REMAIN; SEROQUEL WAS PROBABLY FOR DEMENTIA SYMPTOMS. CM SPOKE TO DOUGLAS OF [facility] WHO REPORTS THEY FOUND DIAGNOSIS OF DEHYDRATION AND WILL USE THAT TO SKILL PT IN FOR REHAB BUT PT WILL HAVE TO BE TAPERED OFF OF SEROQUEL THEIR FACILITY WILL NOT ACCEPT PT TAKING THE MEDICATION WITHOUT TAPER AND PLAN TO DISCONTINUE THE MEDICATION. CM MET WITH PT'S SPOUSE IN ROOM. PT'S SPOUSE WANTS TO TALK TO PT'S PRIMARY DOCTOR, DR. NIX, BEFORE MAKING THE DECISION TO STOP SEROQUEL AND UNDERSTANDS THAT [facility] WANTS TO TAPER THE MEDICATION DOWN TO COMPLETELY STOP, WHICH WILL TAKE APPROXIMATELY 4 WEEKS TO DO SO. PT'S SPOUSE REPORTS PT WILL NOT LIKELY BE IN REHAB THAT LONG AND HER PLAN REMAINS TO BRING PT HOME AFTER REHAB. CM DISCUSSED OTHER OPTIONS FOR REHAB IN DETENTION FACILITY. PROVIDER LISTING PROVIDED. SPOUSE SIGNED CONSENT FOR [facility] CHOICE IN EVENT PT IS DECLINED BY [facility]. [facility] AND CM WAITING PT'S SPOUSE TO GET DETERMINATION FROM DR. NIX IF PT CAN BE TAPERED OF SEROQUEL AT THE CARE HOME IN REHAB. CELSO NEELY, CASE MANAGEMENT DCPIA - Discharge Planning Initial Assessment Updated by [id number]: Tripp Neely on 07/02/18 11:26 am * Is the patient Alert and Oriented? Yes * How many steps to enter\exit or inside your home? * PCP DR. NIX * Pharmacy [facility]. * Preadmission Environment Home with Family * ADLs Partial Dependent * Partial ADLs (Assistance needed) Medication Management Transfers * Equipment Cane Nebulizer Walker Wheelchair * Other Equipment [employer] - MEDICAL EQUIPMENT PROVIDER * List name and contact numbers for known caregivers / representatives who currently or will assist patient after discharge: RYAN DRAKE, SPOUSE, * Verbal permission to speak to the caregivers and representatives has been obtained from the patient. Yes * Community resources currently utilized None * Please name any agencies selected above. NONE * Additional services required to return to the preadmission environment? Yes * Can the patient safely return to the preadmission environment? Yes * Has this patient been hospitalized within the prior 30 days at any hospital? No Coverage Notice Reviewer: ALONZO Neely Notice Issued Date-Time: 07/02/2018 8:50 Notice Type: Patient Choice Letter Notice Delivered To: Patient Relationship to Patient: Engineering Drafter Name: Delivery Method: HAND - Hand Delivered Jacqueline Days: Prior Verbal Notification: Recipient Understood Notice: Yes Recipient Signature: Yes Med Rec Note Co-signed by Attending: Coverage Notice Comment: [facility] Reviewer: ALONZO Neely Notice Issued Date-Time: 07/02/2018 9:00 Notice Type: IM Discharge Notice Notice Delivered To: Patient Relationship to Patient: Engineering Drafter Name: Delivery Method: HAND - Hand Delivered Jacqueline Days: Prior Verbal Notification: Recipient Understood Notice: Yes Recipient Signature: Yes Med Rec Note Co-signed by Attending: Coverage Notice Comment: Reviewer: ALONZO Neely Notice Issued Date-Time: 07/02/2018 15:00 Notice Type: Patient Choice Letter Notice Delivered To: Family Member Relationship to Patient: Spouse Engineering Drafter Name: RYAN DRAKE Delivery Method: HAND - Hand Delivered Jacqueline Days: Prior Verbal Notification: Recipient Understood Notice: Yes Recipient Signature: Yes Med Rec Note Co-signed by Attending: Coverage Notice Comment: Last DP export: 07/03/18 12:44 p Patient Name: HUMERA DRAKE Page [id number] at 1648 All edits/amendments must be made on the electronic document DICTATION DATE: 07/03/181646 DIPPER MACHINE OPERATOR: REX 07/03/181646 RPT#: [id number] DC DATE: STATUS: ADM IN [facility] [address] [facility] [facility] [address] END OF REPORT
--- NOTE | 2018-07-03 20:10 | NUR ---
EVENING ROUNDS COMPLETED. REPORT RECEIVED. PT SITTING UP IN BED WITH EYES OPEN, RR EVEN AND UNLABORED. NO S/S OF DISTRESS NOTED. INTRODUCED SELF TO PT. PT DENIES FURTHER NEEDS AT THIS TIME. ROXI ALARM TURNED ON. SIDE RAILS UP X2. CALL LIGHT IN REACH. WILL CTM.
[2018-07-03 21:53] VITALS: BP 162/98
[2018-07-04] VITALS: BP 130/96
--- NOTE | 2018-07-04 03:02 | NUR ---
I have reviewed this patient and I concur with the Shift Assessment completed by the Licensed Practical Nurse today this shift.
--- NOTE | 2018-07-04 04:00 | NUR ---
PT LYING IN BED WITH EYES CLOSED, RR EVEN AND UNLABORED. LINEN AND GOWN HAS BEEN CHANGED. NO S/S OF DISTRESS NOTED. 63 NORMAL SINUS ON TELE. DENIES FURTHER NEEDS AT THIS TIME. CALL LIGHT IN REACH. WILL CTM.
[2018-07-04 05:47] VITALS: BP 150/64
--- NOTE | 2018-07-04 06:43 | NUR ---
CALLED [facility], WHERE PT IS TO BE DISCHARGED TO AFTER LEAVING FACILITY. CALLED REPORT TO VERONICA LEAVITT LPN, REMOVED RFA PIV. MINIMAL BLEEDING NOTED. GAUZE BANDAGE APPLIED. CALL LIGHT IN REACH. WILL CTM.
--- NOTE | 2018-07-04 09:58 | MORECARE ---
CASE MANAGEMENT DISCHARGE SUMMARY PATIENT: HUMERA DRAKE UNIT: [id number] ADM DATE: 06/28/18 AGE: 88 : 32 SEX: M ROOM/BED: D.2132 AUTHOR: APRILDOC PHYSICIAN: REFERRING PHYSICIAN: OBEY ROCHA MD DATE OF SERVICE: 07/04/18 Discharge Plan Patient Name: HUMERA DRAKE Facility: [facility]:[place] : 1930 Planned Disposition: Intermediate Facility Anticipated Discharge Date: 07/04/18 Discharge Date: 07/04/2018 Expected LOS: 6 Initial Reviewer: [id number] Initial Review Date: 06/27/2018 Generated: 07/04/18 10:58 am Comments DCP- Discharge Planning Updated by [email or web address]: Tripp Neely on 07/03/18 3:[address] Patient Name: HUMERA DRAKE Admission Status: ER Accout number: [id number] Admission Date: 06-28-2018 : 1930 Admission Diagnosis:WEAKNESS Attending: JOSEFINA, Current LOS: 5 Anticipated DC Date: 07-04-2018 Planned Disposition: Intermediate Facility Primary Insurance: MEDICARE A & B PLANNED EXTERNAL PROVIDER: [facility], MEDICARE REHAB BED Discharge Planning Comments: CM RECEIVED CALL FROM ARUN OF [facility], THEY WILL NOT ACCEPT TODAY IT IS TOO LATE, WILL ACCEPT TOMORROW AND REDUCTION FURNACE OPERATOR AT 0800 IN [place]. ARUN HAS NOTIFIED PT'S SPOUSE WHO IS ALSO IN AGREEMENT WITH PLAN. STRAW HAT PRESSER NURSE NOTIFIED. FOR DISCHARGE 07-04-18, FAX DISCHARGE INFORMATION TO [facility] AT [phone]. CALL NURSE REPORT TO [facility] AT [phone]. [facility] TO REDUCTION FURNACE OPERATOR IN [place] AT 0800 AM. Drop Machine Operator: Tripp Neely DCP- Discharge Planning Updated by [id number]: Tripp Neely on 07/03/18 12:[address] Patient Name: HUMERA DRAKE Encounter No: [id number] : 1930 Primary Insurance: MEDICARE A & B Anticipated DC Date: 07-03-2018 Planned Disposition: Intermediate Facility External Planned Provider: [facility], MEDICARE REHAB BED DCP follow-up note: CM SPOKE TO PT'S SPOUSE AT NURSES STATION AT ABOUT 1315 HOURS; PT'S SPOUSE ADVISED THAT SHE SPOKE TO DR. NIX, PT'S PCP, AND HE WAS OK WITH TAPER OF SEROQUEL AT [facility]. PT'S SPOUSE INFORMED CM THAT SHE WOULD LIKE CM TO TRY REFERRAL TO [facility] FIRST AND IF THEY WILL NOT ACCEPT PT, THEN SHE WILL LET PT GO TO REHAB AT [facility] WITH TAPER OF SEROQUEL. CM NOTIFIED ARUN OF [facility] OF REFERRAL, [facility] MAY CONSIDER PT ON SEROQUEL; CM FAXED REFERRAL INFORMATION TO [facility] AT [phone]. CM WAITING ADMISSION FROM [facility]. PT'S SPOUSE STATES THAT IF DECLINED BY [facility], [facility] AND CAN HAVE SEROQUEL TAPER PER HER CONVERSATION WITH PT'S PCP, DR. FARHEEN NIX. Tripp Neely, CASE MANAGEMENT DCP- Discharge Planning Updated by [id number]: Tripp Neely on 07/02/18 2:[address] Patient Name: HUMERA DRAKE Admission Status: ER Accout number: [id number] Admission Date: 06-28-2018 : 1930 Admission Diagnosis:WEAKNESS Attending: JOSEFINA Current LOS: 4 Anticipated DC Date: 07-02-2018 Planned Disposition: Intermediate Facility Primary Insurance: MEDICARE A & B PLANNED EXTERNAL PROVIDER: [facility], MEDICARE REHAB BED Discharge Planning Comments: CM MET WITH PT IN ROOM TO DISCUSS DISCHARGE PLANNING AND NEEDS. PT REPORTS LIVING AT HOME DEPENDENTLY WITH HIS . PT HAS ASSISTANCE WITH MEDICATION MANAGEMENT AND TRANSFERS. PT HAS A CANE, WALKER, WHEELCHAIR AND NEBULIZER FROM [employer]. PT HAS NO OUTSIDE SERVICES ASSISTING IN THE HOME. CM DISCUSSED AVAILABILITY OF HOME HEALTH, REHAB SERVICES AND MEDICAL EQUIPMENT. PT IS IN AGREEMENT WITH REHAB AT [facility]. PT'S SPOUSE TO TRANSPORT HOME AFTER REHAB AT [facility]. PENITENTIARY FACILITY LISTING PROVIDED, CHOICE FOR [facility] SIGNED. IMPORTANT MESSAGE FROM MEDICARE PROVIDED AND EXPLAINED. CM RECEIVED CALL A SHORT TIME LATER FROM PT'S SPOUSE, RYAN DRAKE, , WHO VERIFIED PLAN FOR REHAB AT [facility], WANTED TO ENSURE THAT EVERYONE COMMUNICATES WITH HER PT HAS DEMENTIA AND HAS TROUBLE REMEMBERING THINGS. CM CALLED [facility], , SPOKE TO DOUGLAS, BED AVAILABLE, DOUGLAS IS FAMILIAR WITH PT SHE HAS DISCUSSED REFERRAL WITH RN [facility] LAST WEEK; REFERRAL FAXED TO [facility] AT [phone]. CM ASKED FOR ADMISSION DETERMINATION TODAY. CM [facility]. Drop Machine Operator: Tripp Neely Appended by Tripp Neely on 07/02/2018 15:16 CDT: CM RECEIVED CALL FROM DOUGLAS OF [facility] WHO ASKED IF THE DOCTOR WOULD CONSIDER DIAGNOSIS OF CVA OR [facility] FOR REHAB SERVICES PT IS LISTED WEAKNESS WITH FALLS. DOUGLAS ALSO ASKED WHY PT WAS ON SEROQUEL. CM NOTIFIED [facility] WHO INFORMED CM THAT PT DID NOT HAVE A CVA ANT AHT PT'S DIAGNOSIS IS ACUTE ON CHRONIC KIDNEY DISEASE AND WILL REMAIN; SEROQUEL WAS PROBABLY FOR DEMENTIA SYMPTOMS. CM SPOKE TO DOUGLAS OF [facility] WHO REPORTS THEY FOUND DIAGNOSIS OF DEHYDRATION AND WILL USE THAT TO SKILL PT IN FOR REHAB BUT PT WILL HAVE TO BE TAPERED OFF OF SEROQUEL THEIR FACILITY WILL NOT ACCEPT PT TAKING THE MEDICATION WITHOUT TAPER AND PLAN TO DISCONTINUE THE MEDICATION. CM MET WITH PT'S SPOUSE IN ROOM. PT'S SPOUSE WANTS TO TALK TO PT'S PRIMARY DOCTOR, DR. NIX, BEFORE MAKING THE DECISION TO STOP SEROQUEL AND UNDERSTANDS THAT [facility] WANTS TO TAPER THE MEDICATION DOWN TO COMPLETELY STOP, WHICH WILL TAKE APPROXIMATELY 4 WEEKS TO DO SO. PT'S SPOUSE REPORTS PT WILL NOT LIKELY BE IN REHAB THAT LONG AND HER PLAN REMAINS TO BRING PT HOME AFTER REHAB. CM DISCUSSED OTHER OPTIONS FOR REHAB IN PENITENTIARY FACILITY. PROVIDER LISTING PROVIDED. SPOUSE SIGNED CONSENT FOR [facility] SECOND CHOICE IN EVENT PT IS DECLINED BY [facility]. [facility] AND CM WAITING PT'S SPOUSE TO GET DETERMINATION FROM DR. NIX IF PT CAN BE TAPERED OF SEROQUEL AT THE PENITENTIARY IN REHAB. CELSO NEELY, CASE MANAGEMENT DCPIA - Discharge Planning Initial Assessment Updated by [id number]: Tripp Neely on 07/02/18 11:26 am * Is the patient Alert and Oriented? Yes * How many steps to enter\exit or inside your home? * PCP DR. NIX * Pharmacy [facility] [address] * Preadmission Environment Home with Family * ADLs Partial Dependent * Partial ADLs (Assistance needed) Medication Management Transfers * Equipment Cane Nebulizer Walker Wheelchair * Other Equipment [employer] - MEDICAL EQUIPMENT PROVIDER * List name and contact numbers for known caregivers / representatives who currently or will assist patient after discharge: RYAN DRAKE, SPOUSE, * Verbal permission to speak to the caregivers and representatives has been obtained from the patient. Yes * Community resources currently utilized None * Please name any agencies selected above. NONE * Additional services required to return to the preadmission environment? Yes * Can the patient safely return to the preadmission environment? Yes * Has this patient been hospitalized within the prior 30 days at any hospital? No Coverage Notice Reviewer: ALONZO Neely Notice Issued Date-Time: 07/02/2018 8:50 Notice Type: Patient Choice Letter Notice Delivered To: Patient Relationship to Patient: It Service Delivery Manager Name: Delivery Method: HAND - Hand Delivered Jacqueline Days: Prior Verbal Notification: Recipient Understood Notice: Yes Recipient Signature: Yes Med Rec Note Co-signed by Attending: Coverage Notice Comment: [facility] Reviewer: [id number] Neely Notice Issued Date-Time: 07/02/2018 9:00 Notice Type: IM Discharge Notice Notice Delivered To: Patient Relationship to Patient: It Service Delivery Manager Name: Delivery Method: HAND - Hand Delivered Jacqueline Days: Prior Verbal Notification: Recipient Understood Notice: Yes Recipient Signature: Yes Med Rec Note Co-signed by Attending: Coverage Notice Comment: Reviewer: ALONZO Neely Notice Issued Date-Time: 07/02/2018 15:00 Notice Type: Patient Choice Letter Notice Delivered To: Family Member Relationship to Patient: Spouse It Service Delivery Manager Name: RYAN DRAKE Delivery Method: HAND - Hand Delivered Jacqueline Days: Prior Verbal Notification: Recipient Understood Notice: Yes Recipient Signature: Yes Med Rec Note Co-signed by Attending: Coverage Notice Comment: Last DP export: 07/03/18 3:48 p Patient Name: HUMERA DRAKE Page 18400 at 0958 All edits/amendments must be made on the electronic document DICTATION DATE: 07/04/18956 CREDIT AND COLLECTIONS REPRESENTATIVE: REX 07/04/18956 RPT#: [id number] DC DATE:07/04/18 STATUS: DIS IN [facility] [address] [place] [address] END OF REPORT
--- NOTE | 2018-07-04 14:29 | NUR ---
OT NOTE: PT ALERT; MOD ASSIST WITH BED MOB; MOD ASSIST WITH GROOMING; PT SUPPOSED TO BE D/CING TO SNF TODAY. MIN ASSIST FOR SITTING BALANCE ON EOB. ANGELIA LESTER, OTR/L
--- NOTE | 2018-07-04 16:47 | NUR ---
OT NOTE: PT COMPLETED HGYIENE TASKS WITH ODIN Beebe. PT COMPLETED BED MOB WITH ANGELA Beebe. THANK YOU, FLORES POOL
== END 2018-07-04 09:10 | DRG 884 ==
LOC: D.ER 09:29 → D.EDHOLD 12:58 → OBSVTIME 12:59 → D.M2 13:38
PROVIDERS: Emergency Medicine; ADMIT Family Medicine; ATTEND Family Medicine
DX: R54 Age-related physical debility (principal); N17.9 Acute kidney failure, unspecified; G30.9 Alzheimer's disease, unspecified; F02.80 Dementia in other diseases classified elsewhere, unspecified severity, without behavioral disturbance, psychotic disturbance, mood disturbance, and anxiety; W19.XXXA Unspecified fall, initial encounter; R32 Unspecified urinary incontinence; I25.10 Atherosclerotic heart disease of native coronary artery without angina pectoris; I73.9 Peripheral vascular disease, unspecified; I12.9 Hypertensive chronic kidney disease with stage 1 through stage 4 chronic kidney disease, or unspecified chronic kidney disease; N18.9 Chronic kidney disease, unspecified

== ENCOUNTER 2018-07-22 11:21 | Inpatient (IN) | payer MEDICARE, BC ==
[~2018-07-22 11:21] MED LIST changes: +CYPROHEPTAD2 MG/5 ML PO; +RANITIDINE HCL150 M1 PO; +STOOL SOFTENER250 MG PO; +SYNTHROID100 MCG PO
[2018-07-22 11:54] LABS: BASOPHILS 0.1 % (0-2); EOSINOPHILS 0.1 % (0-7); HEMATOCRIT 38.6 % (42.0-54.0); HEMOGLOBIN 12.6 g/dL (13.5-17.5); IMMATURE GRANULOCYTES 0.1 % (0-5); LYMPHOCYTES 4.4 % (15-50); MCH 30.8 pg (26.0-34.0); MCHC 32.6 g/dL (31.0-37.0); MCV 94.4 fL (80.0-100.0); MONOCYTES 5.9 % (2-11); NEUTROPHILS 89.4 % (40-80); PLATELET COUNT 193 10x3/uL (130-400); RBC 4.09 10x6/uL (4.20-6.10); RDW 14.2 % (11.5-14.5)
[2018-07-22 12:13] LABS: ALBUMIN 2.9 g/dL (3.4-5.0); ANION GAP 15.2 mmol/L (8-16); BILIRUBIN - TOTAL 0.49 mg/dL (0.2-1.3); CARBON DIOXIDE 24.8 mmol/L (21.0-32.0); CREATININE - SERUM 1.6 mg/dL (0.6-1.3); PROTEIN - SERUM 6.8 g/dL (6.4-8.2)
[2018-07-22 12:30] VITALS: BP 143/50
--- NOTE | 2018-07-22 12:55 | NUR ---
PT WAS GIVEN URINAL UPON ARRIVAL AND ASKED TO PROVIDE URINE SAMPLE FOR ORDERED LABS. PT'S AT THE BEDSIDE WHO STATED THAT SHE WOULD ASSIST PT WITH USE OF URINAL. PT UNABLE TO PROVIDE URINE SAMPLE SINCE ARRIVAL. ORDER RECEIVED PER EDP TO PERFORM IN AND OUT CATH.
[2018-07-22 13:05] LABS: AMYLASE - SERUM 28 U/L (25-115); LIPASE 82 U/L (73-393)
[2018-07-22 13:31] VITALS: BP 141/63
--- NOTE | 2018-07-22 13:40 | NUR ---
DEVIN-CARE PERFORMED AND SOILED BRIEF CHANGED FOLLOWING EPISODE OF URINARY AND BOWEL INCONTINENCE. PT REMAINS ALERT, ORIENTED TO PERSON AND PLACE.
[2018-07-22 14:03] LABS: APPEARANCE SL CLDY (CLEAR); COLOR YELLOW (YELLOW); SPECIFIC GRAVITY 1.025 (1.005-1.020)
[2018-07-22 14:07] LABS: BACTERIA FEW /hpf (NONE SEEN); BILIRUBIN NEGATIVE (NEGATIVE); EPITHELIAL CELLS 0-5 /hpf (0-5); GLUCOSE NEGATIVE (NEGATIVE); GRANULAR CAST RARE /lpf (NONE SEEN); KETONE NEGATIVE (NEGATIVE); MUCUS <1+ /lpf (NONE SEEN); NITRITE NEGATIVE (NEGATIVE); PROTEIN TRACE mg/dL (NEGATIVE); UROBILINOGEN NORMAL (NORMAL); WHITE CELLS - URINE RARE /hpf (0-5)
[2018-07-22 14:08] LABS: AMORPHOUS SEDIMENT <1+ /lpf (NONE SEEN)
--- NOTE | 2018-07-22 14:21 | NUR ---
PT RETURNED TO THE ED FOLLOWING ORDERED CT SCAN.
[2018-07-22 15:01] VITALS: BP 151/62
--- NOTE | 2018-07-22 15:23 | NUR ---
PER PT'S , PT C/O ABD PAIN. EDP NOTIFIED OF FAMILY MEMBERS REQUEST FOR PAIN MEDICATION FOR PT. PT CONFUSED AT THIS TIME, NOTED HX OF DEMENTIA.
--- NOTE | 2018-07-22 17:59 | NUR ---
ORDERED ZOSYN COMPLETE AT 2853
[2018-07-22 20:16] VITALS: BP 184/69; BMI 22.9
--- NOTE | 2018-07-22 21:00 | NUR ---
RECIEVED BEDSIDE REPORT. ROUNDS COMPLETED. AAOX3. SBP RECHECKED SBP 160'S. PT APPEARS A LITTLE CONFUSED. NS INFUSING @125, RIGHT WRIST. PT CURRENTLY RESTING IN BED. DENIES ANY FURTHER NEED FOR COMFORT CARE. WILL CPOC. CL IN REACH, BED IN LOW, SR UP X2.
[2018-07-23] VITALS: BP 118/43
[2018-07-23 04:00] VITALS: BP 161/64
[2018-07-23 06:26] LABS: BASOPHILS 0.2 % (0-2); EOSINOPHILS 0.9 % (0-7); HEMATOCRIT 32.8 % (42.0-54.0); HEMOGLOBIN 10.6 g/dL (13.5-17.5); IMMATURE GRANULOCYTES 0.2 % (0-5); LYMPHOCYTES 14.5 % (15-50); MCH 30.6 pg (26.0-34.0); MCHC 32.3 g/dL (31.0-37.0); MCV 94.8 fL (80.0-100.0); MEAN PLATELET VOLUME 12.9 fL (7.4-10.4); MONOCYTES 10.1 % (2-11); NEUTROPHILS 74.1 % (40-80); RBC 3.46 10x6/uL (4.20-6.10); RDW 14.2 % (11.5-14.5)
[2018-07-23 06:27] LABS: PLATELET COUNT 146 10x3/uL (130-400); WBC 6.4 10x3/uL (4.8-10.8)
[2018-07-23 07:04] LABS: ALBUMIN 2.4 g/dL (3.4-5.0); ANION GAP 12.4 mmol/L (8-16); BILIRUBIN - TOTAL 0.44 mg/dL (0.2-1.3); CALCIUM 8.5 mg/dL (8.5-10.1); CARBON DIOXIDE 24.4 mmol/L (21.0-32.0); CREATININE - SERUM 1.5 mg/dL (0.6-1.3); POTASSIUM - SERUM 3.8 mmol/L (3.5-5.1); PROTEIN - SERUM 5.6 g/dL (6.4-8.2)
[2018-07-23 07:47] VITALS: BP 176/56
[2018-07-23 12:08] VITALS: BMI 22.9
[2018-07-23 12:18] VITALS: BP 161/59
[2018-07-23 12:23] LABS: % SATURATION 13 % (15-55); IRON 27 ug/dl (35-150); TOTAL IRON BIND CAPACITY 203 ug/dl (260-445); UNSAT IRON BIND CAPACITY 176 ug/dl (150-375)
--- NOTE | 2018-07-23 19:18 | NUR ---
PATIENT LAYING IN BED. NO COMPLAINTS AT THIS TIME. NO DISTRESS NOTED.
[2018-07-23 19:26] VITALS: BP 171/70
[2018-07-23 20:00] VITALS: BP 124/79
--- NOTE | 2018-07-23 23:19 | NUR ---
PATIENT LAYING IN BED, EYES CLOSED, CHEST RISING AND FALLING. NO DISTRESS NOTED.
[2018-07-24] VITALS: BP 115/52
--- NOTE | 2018-07-24 01:44 | NUR ---
PATIENT LAYING IN BED. NO COMPLAINTS AT THIS TIME. NO DISTRESS NOTED.
[2018-07-24 04:00] VITALS: BP 175/66
--- NOTE | 2018-07-24 04:33 | NUR ---
PATIENT LAYING IN BED. EYES CLOSED, CHEST RISING AND FALLING. NO DISTRESS NOTED.
[2018-07-24 06:52] LABS: BASOPHILS 0.1 % (0-2); EOSINOPHILS 0.2 % (0-7); HEMATOCRIT 37.4 % (42.0-54.0); HEMOGLOBIN 12.4 g/dL (13.5-17.5); IMMATURE GRANULOCYTES 0.2 % (0-5); LYMPHOCYTES 9.6 % (15-50); MCH 30.5 pg (26.0-34.0); MCHC 33.2 g/dL (31.0-37.0); MEAN PLATELET VOLUME 12.7 fL (7.4-10.4); MONOCYTES 9.9 % (2-11); PLATELET COUNT 168 10x3/uL (130-400); RBC 4.07 10x6/uL (4.20-6.10); RDW 13.8 % (11.5-14.5)
[2018-07-24 06:56] LABS: MCV 91.9 fL (80.0-100.0); WBC 9.3 10x3/uL (4.8-10.8)
--- NOTE | 2018-07-24 08:05 | NUR ---
RESUMING PT CARE, PT IS SITTING UP IN BED EATING BREAKFAST. HE IS ALERT AND ORIENTED X3, CALL LIGHT IN REACH. WILL CONTINUE TO MONITOR AND FOLLOW PLAN OF CARE.
[2018-07-24 08:30] LABS: ANION GAP 14.1 mmol/L (8-16); CALCIUM 8.7 mg/dL (8.5-10.1); CARBON DIOXIDE 23.1 mmol/L (21.0-32.0); CREATININE - SERUM 1.2 mg/dL (0.6-1.3); MAGNESIUM - SERUM 1.7 mg/dL (1.8-2.4)
[2018-07-24 08:33] LABS: POTASSIUM - SERUM 3.2 mmol/L (3.5-5.1)
[2018-07-24 09:21] VITALS: BP 156/79
--- NOTE | 2018-07-24 09:49 | NUR ---
I have reviewed this patient and I concur with the Shift Assessment completed by the Licensed Practical Nurse today this shift.
[2018-07-24 12:07] VITALS: BP 159/66
--- NOTE | 2018-07-24 12:33 | NUR ---
PER DR BRONW ORDER A SPEECH EVAL FOR SWALLOW STUDY, PT IS HAVING A HARD TIME WITH CHEWING AND SWALLOWING FOOD. ORDER NOTED. NUTRITION NOTIFIED, ENSURE GIVEN.
--- NOTE | 2018-07-24 12:40 | NUR ---
Nutrition follow-up: Diet: Regular PO intake very poor. RDN visited with pt who states he has a poor appetite. Nurse, Laura Scherer, reports she has been helping pt with lunch tray and he is not eating much at all. Chocolate Ensure provided and pt reports it tastes good. Pt appears to be chewing food for an extended period of time and due to dx of right lower lobe pneumonia a swallow study is ordered. RDN will order chocolate Ensure with lunch, dinner and wait of speech therapy recommendations. RDN following.
--- NOTE | 2018-07-24 12:44 | NUR ---
PT SITTING UP IN BED, NEEDS ASSISTANCE WITH EATING. WILL PASS IN REPORT AND HANG A SIGN THAT HE NEEDS ASSISTANCE WITH FEEDINGS.
[2018-07-24 15:11] LABS: FOLATE (FOLIC ACID) - SERUM 13.2 ng/mL (>3.0)
[2018-07-24 15:57] VITALS: BP 165/73
--- NOTE | 2018-07-24 19:32 | NUR ---
PATIENT LAYING IN BED. NO COMPLAINTS AT THIS TIME. NO DISTRESS NOTED.
[2018-07-24 20:00] VITALS: BP 122/63
--- NOTE | 2018-07-24 22:00 | NUR ---
PATIENT PULLED RIGHT WRIST IV OUT. APON ASSESSING IV IN LEFT AC, IV WAS OUT OF SKIN. NEW IV 22G IN RIGHT WRIST X1 ATTEMPT.
--- NOTE | 2018-07-24 22:30 | NUR ---
PATIENT PULLED DRESSING OFF OF RIGHT IJ. DRESSING CHANGED PER PROTOCOL.
--- NOTE | 2018-07-24 23:00 | NUR ---
PATIENT LAYING IN BED AT THIS TIME. NO DISTRESS NOTED. NO COMPLAINTS AT THIS TIME.
--- NOTE | 2018-07-25 03:38 | NUR ---
PATIENT LAYING IN BED, EYES CLOSED, CHEST RISING AND FALLING. NO DISTRESS NOTED.
[2018-07-25 04:00] VITALS: BP 161/64
[2018-07-25 06:01] LABS: BASOPHILS 0.3 % (0-2); EOSINOPHILS 1.9 % (0-7); HEMATOCRIT 32.4 % (42.0-54.0); HEMOGLOBIN 10.8 g/dL (13.5-17.5); IMMATURE GRANULOCYTES 0.1 % (0-5); LYMPHOCYTES 18.5 % (15-50); MCH 30.4 pg (26.0-34.0); MCHC 33.3 g/dL (31.0-37.0); MCV 91.3 fL (80.0-100.0); MEAN PLATELET VOLUME 12.2 fL (7.4-10.4); MONOCYTES 11.5 % (2-11); NEUTROPHILS 67.7 % (40-80); PLATELET COUNT 155 10x3/uL (130-400); RBC 3.55 10x6/uL (4.20-6.10); RDW 13.9 % (11.5-14.5)
[2018-07-25 06:06] LABS: WBC 6.9 10x3/uL (4.8-10.8)
[2018-07-25 06:13] LABS: ANION GAP 11.9 mmol/L (8-16); CALCIUM 8.2 mg/dL (8.5-10.1); CARBON DIOXIDE 23.3 mmol/L (21.0-32.0); CREATININE - SERUM 1.4 mg/dL (0.6-1.3); MAGNESIUM - SERUM 1.5 mg/dL (1.8-2.4); POTASSIUM - SERUM 3.2 mmol/L (3.5-5.1)
--- NOTE | 2018-07-25 06:18 | NUR ---
PATIENT LAYING IN BED. EYES CLOSED, CHEST RISING AND FALLING NO DISTRESS NOTED.
[2018-07-25 08:15] VITALS: BP 145/72
[2018-07-25 13:09] VITALS: BP 157/61
--- NOTE | 2018-07-25 15:19 | NUR ---
I have reviewed this patient and I concur with the Shift Assessment completed by the Licensed Practical Nurse today this shift.
[2018-07-25 15:21] VITALS: BP 182/57
--- NOTE | 2018-07-25 15:45 | NUR ---
I have reviewed this patient and I concur with the Shift Assessment completed by the Licensed Practical Nurse today this shift.
--- NOTE | 2018-07-25 16:22 | MORECARE ---
CASE MANAGEMENT DISCHARGE SUMMARY PATIENT: HUMERA DRAKE UNIT: [id number] ADM DATE: 07/22/18 AGE: 88 : 32 SEX: M ROOM/BED: D.2104 AUTHOR: NELA CHNE PHYSICIAN: REFERRING PHYSICIAN: NARESH JOSHI MD DATE OF SERVICE: 07/25/18 Discharge Plan Patient Name: HUMERA DRAKE [facility] [facility] 1930 Planned Disposition: [facility]ci Facility Anticipated Discharge Date: 07/26/18 Discharge Date: Expected LOS: 4 Initial Reviewer: [id number] Initial Review Date: 07/25/2018 Generated: 07/25/18 5:22 pm External [facility] Next Contact Date: 07/25/2018 Service Request Date: Service Type: Resolution: Reviewer: Comments: Patient Name: HUMERA DRAKE Page 31457 at 1622 All edits/amendments must be made on the electronic document DICTATION DATE: 07/25/181621 NEWSPAPER COPY EDITOR: REX 07/25/18 162 RPT#: [id number] MS DATE: STATUS: ADM IN [facility] [address] [place] [address] END OF REPORT
--- NOTE | 2018-07-25 16:32 | MORECARE ---
CASE MANAGEMENT DISCHARGE SUMMARY PATIENT: HUMERA DRAKE UNIT: [id number] ADM DATE: 07/22/18 AGE: 88 : 32 SEX: M ROOM/BED: D.2104 AUTHOR: NELA CHEN PHYSICIAN: REFERRING PHYSICIAN: NARESH JOSHI MD DATE OF SERVICE: 07/25/18 Discharge Plan Patient Name: HUMERA DRAKE Facility: [facility]:[place] : 1930 Planned Disposition: Custodial Facility Anticipated Discharge Date: 07/26/18 Discharge Date: Expected LOS: 4 Initial Reviewer: [id number] Initial Review Date: 07/25/2018 Generated: 07/25/18 5:32 pm DCPIA - Discharge Planning Initial Assessment Updated by [email or web address]: Tripp Catherine on 07/25/18 4:23 pm * Is the patient Alert and Oriented? Yes * How many steps to enter\exit or inside your home? NONE * PCP DR NIX * Pharmacy [facility]. * Preadmission Environment Custodial Facility * Facility Name [facility] * ADLs Partial Dependent * Partial ADLs (Assistance needed) Ambulation Bathing Medication Management * Equipment Cane Nebulizer Walker Wheelchair * Other Equipment [employer] - MEDICAL EQUIPMENT PROVIDER * List name and contact numbers for known caregivers / representatives who currently or will assist patient after discharge: RYAN DRAKE, SPOUSE, * Verbal permission to speak to the caregivers and representatives has been obtained from the patient. Yes * Community resources currently utilized None * Please name any agencies selected above. NONE * Additional services required to return to the preadmission environment? Yes * Can the patient safely return to the preadmission environment? Yes * Has this patient been hospitalized within the prior 30 days at any hospital? Yes Last DP export: 07/25/18 3:22 pm Patient Name: HUMERA DRAKE Page [id number] at 1632 All edits/amendments must be made on the electronic document DICTATION DATE: 07/25/18 1632 KNIFE SHARPENER: REX 07/25/18 1632 RPT#: [id number] DC DATE: STATUS: ADM IN [facility] [address] [facility] [place] [address] END OF REPORT
--- NOTE | 2018-07-25 18:19 | NUR ---
PT HAS A ORDER FOR RESPIRATORY CULTURE, HIS COUGH IS RARE AND NON-PRODUCTIVE. UNABLE TO COLLECT THIS.
--- NOTE | 2018-07-25 19:20 | NUR ---
PT IS AWAKE BUT SEEMS A LITTLE CONFUSED STATING HE DID NOT AGREE TO STAY ALL NIGHT. BED IS WET WITH URINE UP CLEANED AND IN CHAIR WILL BED WAS CHANGED AND CLEANED ...BACK TO BED AND ALARM IS IN PLACE AND WORKING BED IS LOW AND LOCKED IV SITES ARE WRAPPED. LCTA SKIN WARM AND DRY
[2018-07-25 20:05] VITALS: BP 170/75
[2018-07-26] VITALS: BP 158/70
--- NOTE | 2018-07-26 00:20 | NUR ---
PT ATTEMPTS TO GET UP AND LEAVE ABOUT EVERY FIVE MINUTES ...IS VERY CONFUSED TO PLACE AND SITUATIN....FOUND IV IN RT ARM PULLED OUT WITH CATH INTACT...AREA OF INSERTION CLEANED. IV FLUIDS SWITCHED TO LEFT MIDLINE
--- NOTE | 2018-07-26 03:17 | NUR ---
I have reviewed this patient and I concur with the Shift Assessment completed by the Licensed Practical Nurse today this shift.
[2018-07-26 04:00] VITALS: BP 134/77
[2018-07-26 04:27] LABS: BASOPHILS 0.4 % (0-2); EOSINOPHILS 6.2 % (0-7); HEMATOCRIT 32.3 % (42.0-54.0); HEMOGLOBIN 10.7 g/dL (13.5-17.5); IMMATURE GRANULOCYTES 0.3 % (0-5); MCH 30.1 pg (26.0-34.0); MCHC 33.1 g/dL (31.0-37.0); MCV 90.7 fL (80.0-100.0); MEAN PLATELET VOLUME 11.9 fL (7.4-10.4); MONOCYTES 9.9 % (2-11); NEUTROPHILS 61.2 % (40-80); PLATELET COUNT 133 10x3/uL (130-400); RBC 3.56 10x6/uL (4.20-6.10); RDW 13.9 % (11.5-14.5); WBC 6.8 10x3/uL (4.8-10.8)
[2018-07-26 04:45] LABS: ANION GAP 17.2 mmol/L (8-16); CALCIUM 8.4 mg/dL (8.5-10.1); CARBON DIOXIDE 20.8 mmol/L (21.0-32.0); CREATININE - SERUM 1.4 mg/dL (0.6-1.3); MAGNESIUM - SERUM 1.6 mg/dL (1.8-2.4)
[2018-07-26 07:56] VITALS: BP 205/87
--- NOTE | 2018-07-26 09:09 | MORECARE ---
CASE MANAGEMENT DISCHARGE SUMMARY PATIENT: HUMERA DRAKE UNIT: [id number] ADM DATE: 07/22/18 AGE: 88 : 32 SEX: M ROOM/BED: D.2104 AUTHOR: APRIL,DOC PHYSICIAN: REFERRING PHYSICIAN: NARESH JOSHI MD DATE OF SERVICE: 07/26/18 Discharge Plan Patient Name: HUMERA DRAKE Facility: [facility]:[place] : 1930 Planned Disposition: [facility] Facility Anticipated Discharge Date: 07/26/18 Discharge Date: Expected LOS: 4 Initial Reviewer: [id number] Initial Review Date: 07/25/2018 Generated: 07/26/18 10:08 am Comments DCP- Discharge Planning Updated by [email or web address]: Tripp Catherine on 07/26/18 8:[address] Patient Name: HUMERA DRAKE Encounter No: [id number] : 1930 Primary Insurance: MEDICARE A & B Anticipated DC Date: 07-26-2018 Planned Disposition: [facility] Facility External Planned Provider: [facility], MEDICARE REHAB BED Discharge Planning Comments: NALLELY RECEIVED CALL FROM ARUN OF [facility], , TO SCHEDULE MOTOR ELECTRICIAN TRANSPORTATION THIS MORNING. NALLELY EXPLAINED THAT THE DOCTOR HAS NOT YET ENTERED DC ORDERS. ARUN ASKED TO BE CALLED WHEN DISCHARGE IS IN TO ARRANGE TRANSPORTATION. NALLELY CALLED RYAN DRAKE, . SHE IS IN AGREEMENT WITH RETURN TO [facility] TODAY FOR CONTINUED REHAB AND IV ANTIBIOTICS NALLELY PAGED AND NOTIFIED [employer]. POUCH MAKER NURSE NOTIFIED. FOR DISCHARGE, FAX DISCHARGE INFORMATION TO [facility] AT [phone]. CALL NURSE REPORT TO [facility] AT [phone]. [facility] TO ARRANGE VAN TRANSPORT. Centerless Grinder Tender: Tripp Catherine DCP- Discharge Planning Updated by [id number]: Tripp Catherine on 07/25/18 3:[address] Patient Name: HUMERA DRAKE Admission Status: ER Accout number: [id number] Admission Date: 07-22-2018 : 1930 Admission Diagnosis:UNSPECIFIED ABDOMINAL PAIN Attending: NARESH GATICA Current LOS: 3 Anticipated DC Date: 07-26-2018 Planned Disposition: [facility] Facility Primary Insurance: MEDICARE A & B PLANNED EXTERNAL PROVIDER: [facility], MEDICARE REHAB BED Discharge Planning Comments: CM MET WITH PT IN ROOM TO DISCUSS DISCHARGE PLANNING AND NEEDS. PT REPORTS LIVING AT HOME DEPENDENLY WITH SPOUSE WHO ASSISTS WITH MEDICATION MANAGEMENT. PT HAS CANE, NEBULIER, WALKER AND WHEELCHAIR AT HOME FROM [facility]. PT HAS BEEN IN [facility] REHAB AND THINKS HE MIGHT BE GOING BACK THERE AT DISCHARGE AND ASKED CM TO CALL HIS . CM CALLED RYAN DRAKE, . CM DISCUSSED AVAILABILITY OF HOME HEALTH, REHAB SERVICES AND MEDICAL EQUIPMENT RYAN REPORTS PLAN FOR PT TO RETURN TO [facility] FOR CONTINUED REHAB AT DISCHARGE. CM SPOKE TO PT WHO SIGNED CONSENT FORM FOR [facility], IMPORTANT MESSAGE FROM MEDICARE PROVIDED AND EXPLAINED. CM SPOKE TO [employer] WHO INFORMED CM THAT PT WILL NEED IV ZOSYN, 3.375GM, Q8 LAST DOSE SUNDAY AT 1630 HOURS. CM CALLED ARUN AT [facility], , WHO SPOKE TO DOVETAILER WHO INFORMED CM THAT THEY COULD DO IT BUT PT WOULD NEED MIDLINE IF HE DID NOT HAVE GOOD VEINS. CM SPOKE TO RN CM HOUSE WHO INFORMED CM THAT PT DOES NOT HAVE GOOD VEINS. CM NOTIFIED [employer]. MIDLINE PLACED. CM FAXED UPDATE TO [facility] AT [phone]. [facility] PLANS TO ACCEPT PT IN THE MORNING, 07-26-18. FOR DISCHARGE, FAX DISCHARGE INFORMATION TO [facility] AT [phone]. CALL NURSE REPORT TO [facility] AT [phone]. [facility] TO ARRANGE VAN TRANSPORT. Centerless Grinder Tender: Tripp Catherine DCPIA - Discharge Planning Initial Assessment Updated by [email or web address]: Tripp Catherine on 07/25/18 4:23 pm * Is the patient Alert and Oriented? Yes * How many steps to enter\exit or inside your home? NONE * PCP DR NIX * Pharmacy [facility]. * Preadmission Environment [facility] Facility * Facility Name [facility] * ADLs Partial Dependent * Partial ADLs (Assistance needed) Ambulation Bathing Medication Management * Equipment Cane Nebulizer Walker Wheelchair * Other Equipment [employer] - MEDICAL EQUIPMENT PROVIDER * List name and contact numbers for known caregivers / representatives who currently or will assist patient after discharge: RYAN DRAKE, SPOUSE, * Verbal permission to speak to the caregivers and representatives has been obtained from the patient. Yes * Community resources currently utilized None * Please name any agencies selected above. NONE * Additional services required to return to the preadmission environment? Yes * Can the patient safely return to the preadmission environment? Yes * Has this patient been hospitalized within the prior 30 days at any hospital? Yes Coverage Notice Reviewer: [id number] Tala Catherine Notice Issued Date-Time: 07/25/2018 12:30 Notice Type: Patient Choice Letter Notice Delivered To: Patient Relationship to Patient: Dyer And Washer Name: Delivery Method: HAND - Hand Delivered Jacqueline Days: Prior Verbal Notification: Recipient Understood Notice: Yes Recipient Signature: Yes Med Rec Note Co-signed by Attending: Coverage Notice Comment: MONICA Reviewer: [id number] Tala Catherine Notice Issued Date-Time: 07/25/2018 12:30 Notice Type: IM Discharge Notice Notice Delivered To: Patient Relationship to Patient: Dyer And Washer Name: Delivery Method: HAND - Hand Delivered Jacqueline Days: Prior Verbal Notification: Recipient Understood Notice: Yes Recipient Signature: Yes Med Rec Note Co-signed by Attending: Coverage Notice Comment: Last DP export: 07/25/18 3:32 pm Patient Name: HUMERA DRAKE Page 04902 at 0909 All edits/amendments must be made on the electronic document DICTATION DATE: 07/26/18907 AMBULATORY ANALYST: REX 07/26/18907 RPT#: [id number] DC DATE: STATUS: ADM IN [facility] [address] [place] [address] END OF REPORT
--- NOTE | 2018-07-26 09:09 | NUR ---
ALERT AND ORIENTED TO PERSON AND PLACE AND UNSTEADY DUE TO WEAKNESS. FALL RISK PRECAUTIONS IN PLACE. INSTRUCTED ON NEED FOR SPUTUM CULTURE WITH SPECIMEN CUP IN ROOM.DIMINISHED BS TO RLL W/O SOB. IVF INFUSING RUE AT PRESCRIBED RATE. ENCOURAGED TO USE CALL LIGHT FOR ASSIST.
[2018-07-26] MEDS ORDERED: ZOSYN 3.3753.375 G1 IV (10:01)
--- NOTE | 2018-07-26 10:47 | MORECARE ---
CASE MANAGEMENT DISCHARGE SUMMARY PATIENT: HUMERA DRAKE UNIT: [id number] ADM DATE: 07/22/18 AGE: 88 : 32 SEX: M ROOM/BED: D.2104 AUTHOR: APRIL,DOC PHYSICIAN: REFERRING PHYSICIAN: NARESH JOSHI MD DATE OF SERVICE: 07/26/18 Discharge Plan Patient Name: HUMERA DRAKE Facility: [facility]:[place] : 1930 Planned Disposition: Senior Living Facility Anticipated Discharge Date: 07/26/18 Discharge Date: Expected LOS: 4 Initial Reviewer: [id number] Initial Review Date: 07/25/2018 Generated: 07/26/18 11:46 am Comments DCP- Discharge Planning Updated by [email or web address]: Tripp Catherine on 07/26/18 9:[address] Patient Name: HUMERA DRAKE Encounter No: [id number] : 1930 Primary Insurance: MEDICARE A & B Anticipated DC Date: 07-26-2018 Planned Disposition: Senior Living Facility External Planned Provider: [facility], MEDICARE REHAB BED Discharge Planning Comments: NALLELY RECEIVED CALL FROM ARUN OF [facility], , TO SCHEDULE EDUCATIONAL ADMINISTRATOR TRANSPORTATION THIS MORNING. NALLELY EXPLAINED THAT THE DOCTOR HAS NOT YET ENTERED DC ORDERS. ARUN ASKED TO BE CALLED WHEN DISCHARGE IS IN TO ARRANGE TRANSPORTATION. NALLELY CALLED RYAN DRAKE, . SHE IS IN AGREEMENT WITH RETURN TO [facility] TODAY FOR CONTINUED REHAB AND IV ANTIBIOTICS NALLELY PAGED AND NOTIFIED [employer]. DIRECTOR OF EARLY CHILDHOOD NURSE NOTIFIED. FOR DISCHARGE, FAX DISCHARGE INFORMATION TO [facility] AT [phone]. CALL NURSE REPORT TO [facility] AT [phone]. [facility] TO ARRANGE VAN TRANSPORT. Automobile Service Station Manager: Tripp Catherine Appended by Tripp Catherine on 07/26/2018 10:46 CDT: NALLELY RECEIVED DISCHARGE ORDER, FAXED DISCHARGE INFORMATION TO [facility] AT [phone]. CALL NURSE REPORT TO [facility] AT [phone]. [facility] TO ARRANGE VAN TRANSPORT. Automobile Service Station Manager: Tripp Catherine DCP- Discharge Planning Updated by [id number]: Tripp Catherine on 07/25/18 3:[address] Patient Name: HUMERA DRAKE Admission Status: ER Accout number: [id number] Admission Date: 07-22-2018 : 1930 Admission Diagnosis:UNSPECIFIED ABDOMINAL PAIN Attending: NARESH GATICA Current LOS: 3 Anticipated DC Date: 07-26-2018 Planned Disposition: Senior Living Facility Primary Insurance: MEDICARE A & B PLANNED EXTERNAL PROVIDER: [facility], MEDICARE REHAB BED Discharge Planning Comments: CM MET WITH PT IN ROOM TO DISCUSS DISCHARGE PLANNING AND NEEDS. PT REPORTS LIVING AT HOME DEPENDENLY WITH SPOUSE WHO ASSISTS WITH MEDICATION MANAGEMENT. PT HAS CANE, NEBULIER, WALKER AND WHEELCHAIR AT HOME FROM [facility]. PT HAS BEEN IN [facility] REHAB AND THINKS HE MIGHT BE GOING BACK THERE AT DISCHARGE AND ASKED CM TO CALL HIS . CM CALLED RYAN DRAKE, . CM DISCUSSED AVAILABILITY OF HOME HEALTH, REHAB SERVICES AND MEDICAL EQUIPMENT RYAN REPORTS PLAN FOR PT TO RETURN TO [facility] FOR CONTINUED REHAB AT DISCHARGE. CM SPOKE TO PT WHO SIGNED CONSENT FORM FOR [facility], IMPORTANT MESSAGE FROM MEDICARE PROVIDED AND EXPLAINED. CM SPOKE TO [employer] WHO INFORMED CM THAT PT WILL NEED IV ZOSYN, 3.375GM, Q8 LAST DOSE SUNDAY AT 1630 HOURS. CM CALLED ARUN AT [facility], , WHO SPOKE TO MUNITIONS HANDLER SUPERVISOR WHO INFORMED CM THAT THEY COULD DO IT BUT PT WOULD NEED MIDLINE IF HE DID NOT HAVE GOOD VEINS. CM SPOKE TO RN [facility] WHO INFORMED CM THAT PT DOES NOT HAVE GOOD VEINS. CM NOTIFIED [employer]. MIDLINE PLACED. CM FAXED UPDATE TO [facility] AT [phone]. [facility] PLANS TO ACCEPT PT IN THE MORNING, 07-26-18. FOR DISCHARGE, FAX DISCHARGE INFORMATION TO [facility] AT [phone]. CALL NURSE REPORT TO [facility] AT [phone]. [facility] TO ARRANGE VAN TRANSPORT. Automobile Service Station Manager: Tripp Catherine DCPIA - Discharge Planning Initial Assessment Updated by [id number]: Tripp Catherine on 07/25/18 4:23 pm * Is the patient Alert and Oriented? Yes * How many steps to enter\exit or inside your home? NONE * PCP DR NIX * Pharmacy [facility]. * Preadmission Environment Senior Living Facility * Facility Name [facility] * ADLs Partial Dependent * Partial ADLs (Assistance needed) Ambulation Bathing Medication Management * Equipment Cane Nebulizer Walker Wheelchair * Other Equipment [employer] - MEDICAL EQUIPMENT PROVIDER * List name and contact numbers for known caregivers / representatives who currently or will assist patient after discharge: RYAN DRAKE, SPOUSE, * Verbal permission to speak to the caregivers and representatives has been obtained from the patient. Yes * Community resources currently utilized None * Please name any agencies selected above. NONE * Additional services required to return to the preadmission environment? Yes * Can the patient safely return to the preadmission environment? Yes * Has this patient been hospitalized within the prior 30 days at any hospital? Yes Coverage Notice Reviewer: [id number] Tala Catherine Notice Issued Date-Time: 07/25/2018 12:30 Notice Type: Patient Choice Letter Notice Delivered To: Patient Relationship to Patient: Assistant Signal Maintainer Name: Delivery Method: HAND - Hand Delivered Jacqueline Days: Prior Verbal Notification: Recipient Understood Notice: Yes Recipient Signature: Yes Med Rec Note Co-signed by Attending: Coverage Notice Comment: MONICA Reviewer: [id number] Tala Catherine Notice Issued Date-Time: 07/25/2018 12:30 Notice Type: IM Discharge Notice Notice Delivered To: Patient Relationship to Patient: Assistant Signal Maintainer Name: Delivery Method: HAND - Hand Delivered Jacqueline Days: Prior Verbal Notification: Recipient Understood Notice: Yes Recipient Signature: Yes Med Rec Note Co-signed by Attending: Coverage Notice Comment: Last DP export: 07/26/18 8:08 am Patient Name: HUEMRA DRAKE Page 70046 at 1047 All edits/amendments must be made on the electronic document DICTATION DATE: 07/26/18 1046 AUTO ADJUDICATION SPECIALIST: REX 07/26/18 1046 RPT#: [id number] DC DATE: STATUS: ADM IN [facility] [address] [place] [address] END OF REPORT
--- NOTE | 2018-07-26 10:55 | NUR ---
DISCHARGE ORDER OBTAINED WITH DISCHARGE REPORT CALLED TO LATRICE AT [facility] AT STATED TRANSPROT SHOULD BE HERE AROUND NOON.
--- NOTE | 2018-07-26 12:02 | NUR ---
TRANSPORTATION HERE FOR DISCHARGE. PT. STABLE AT TIME OF DEPARTURE WITH PICC LINE FLUSHED AND INTACT TO LUE. DISCHARGE PAPERS GIVEN TO TRANSPORTATION.
== END 2018-07-26 12:04 | DRG 871 ==
LOC: D.ER 11:21 → D.M2 16:36 → D.EDHOLD 16:36 → D.M2 17:15
PROVIDERS: Family Medicine; ADMIT Family Medicine Adult Medicine; ATTEND Family Medicine Adult Medicine
DX: A41.9 Sepsis, unspecified organism (principal); J18.9 Pneumonia, unspecified organism; F03.90 Unspecified dementia, unspecified severity, without behavioral disturbance, psychotic disturbance, mood disturbance, and anxiety; K80.80 Other cholelithiasis without obstruction; I10 Essential (primary) hypertension; I25.10 Atherosclerotic heart disease of native coronary artery without angina pectoris; I73.9 Peripheral vascular disease, unspecified; E78.5 Hyperlipidemia, unspecified; E03.9 Hypothyroidism, unspecified; J43.9 Emphysema, unspecified

== ENCOUNTER 2018-12-16 19:21 | Observation (INO) | payer MEDICARE, BC ==
[~2018-12-16] VITALS: Ht 170.2 cm; Wt 65.1 kg
[~2018-12-16 19:21] MED LIST changes: +ZOSYN 3.3753.375 G1 IV
[2018-12-16 20:16] LABS: BASOPHILS 0.4 % (0-2); EOSINOPHILS 2.2 % (0-7); HEMATOCRIT 42.5 % (42.0-54.0); HEMOGLOBIN 14.3 g/dL (13.5-17.5); IMMATURE GRANULOCYTES 0.4 % (0-5); MCH 31.8 pg (26.0-34.0); MCHC 33.6 g/dL (31.0-37.0); MCV 94.7 fL (80.0-100.0); MONOCYTES 8.2 % (2-11); NEUTROPHILS 68.8 % (40-80); RBC 4.49 10x6/uL (4.20-6.10); RDW 13.8 % (11.5-14.5); WBC 11.3 10x3/uL (4.8-10.8)
[2018-12-16 20:21] LABS: APTT 26.5 SECONDS (22.8-39.4); INR 1.01 (0.85-1.17); PROTIME 12.8 SECONDS (11.6-15.0)
[2018-12-16 20:28] LABS: ALKALINE PHOSPHATASE 89 U/L (46-116); ALT (SGPT) 26 U/L (10-68); BILIRUBIN - TOTAL 0.32 mg/dL (0.2-1.3); CALC OSMOLALITY 299 mosm/kg (275-300); CALCIUM 9.7 mg/dL (8.5-10.1); CARBON DIOXIDE 27.4 mmol/L (21.0-32.0); CHLORIDE - SERUM 107 mmol/L (98-107); CREATININE - SERUM 1.8 mg/dL (0.6-1.3); POTASSIUM - SERUM 4.1 mmol/L (3.5-5.1); SODIUM 144 mmol/L (136-145); UREA NITROGEN 38 mg/dL (7-18); eGFR NON AFRICAN AMERICAN 38 mL/min (90-120)
[2018-12-16 20:29] LABS: GLUCOSE 162 mg/dL (74-106)
[2018-12-16 20:32] LABS: CKMB 0.9 U/L (0.0-3.6); CREATINE KINASE 56 UL (21-232); MAGNESIUM - SERUM 2.1 mg/dL (1.8-2.4); THYROID STIMULATING HORMONE 1.34 uIU/mL (0.36-3.74)
[2018-12-16 20:33] LABS: TROPONIN-I < 0.017 ng/mL (0.000-0.060)
[2018-12-16 20:38] LABS: PLATELET COUNT 265 10x3/uL (130-400)
[2018-12-16 20:57] LABS: APPEARANCE CLEAR (CLEAR); COLOR YELLOW (YELLOW)
[2018-12-16 20:58] LABS: BILIRUBIN NEGATIVE (NEGATIVE); GLUCOSE NEGATIVE (NEGATIVE); KETONE NEGATIVE (NEGATIVE); NITRITE NEGATIVE (NEGATIVE); PROTEIN NEGATIVE (NEGATIVE); UROBILINOGEN NORMAL (NORMAL)
[2018-12-16 22:58] VITALS: BP 203/67; Ht 170.2 cm; Wt 65.1 kg
--- NOTE | 2018-12-16 23:10 | NUR ---
RECEIVED PT FROM THE ED TO ROOM 1212. ADMISSION HX, ADMISSION ASSESSMENT, AND MED REC COMPLETED. PT LAYING IN BED WITH NO FURTHER NEEDS VOICED AT THIS TIME. NO SIGNS OF ACUTE DISTRESS. WILL CONTINUE TO MONITOR.
[2018-12-17 00:45] VITALS: BP 166/58
[2018-12-17 05:04] LABS: BASOPHILS 0.3 % (0-2); EOSINOPHILS 3.1 % (0-7); HEMATOCRIT 39.4 % (42.0-54.0); HEMOGLOBIN 13.1 g/dL (13.5-17.5); IMMATURE GRANULOCYTES 0.4 % (0-5); LYMPHOCYTES 20.8 % (15-50); MCH 31.2 pg (26.0-34.0); MCHC 33.2 g/dL (31.0-37.0); MCV 93.8 fL (80.0-100.0); MEAN PLATELET VOLUME 12.3 fL (7.4-10.4); MONOCYTES 10.4 % (2-11); PLATELET COUNT 229 10x3/uL (130-400); RDW 13.7 % (11.5-14.5); WBC 9.6 10x3/uL (4.8-10.8)
[2018-12-17 05:39] LABS: ANION GAP 11.6 mmol/L (8-16); CALCIUM 9.4 mg/dL (8.5-10.1); CARBON DIOXIDE 28.6 mmol/L (21.0-32.0); CREATININE - SERUM 1.6 mg/dL (0.6-1.3); PHOSPHOROUS 3.5 mg/dL (2.5-4.9); POTASSIUM - SERUM 4.2 mmol/L (3.5-5.1); THYROID STIMULATING HORMONE 1.67 uIU/mL (0.36-3.74)
[2018-12-17 06:01] VITALS: BP 120/87
[2018-12-17 07:28] VITALS: BP 180/66
--- NOTE | 2018-12-17 07:48 | NUR ---
ROUNDING DONE WITH PATIENT BEING FORGETFUL. HX OF DEMENTIA IN REPORT. BED ALARM IS ON AND IN USE. RIGHT AC PIV SEEN WITH NS INFUSING AT 75 CC/HR. DENIES NEEDS AT THIS TIME. WILL CPOC.
--- NOTE | 2018-12-17 09:43 | NUR ---
IV TO RIGHT AC STARTING TO GET SLIGHTLY PUFFY. IV CATH REMOVED WITH TIP INTACT. RE-SITE NEW 22 G TO LEFT WRIST PER THIS NURSE X 1 STICK. AT [facility].
[2018-12-17 11:00] VITALS: BP 153/61
--- NOTE | 2018-12-17 14:17 | NUR ---
VERBAL AND WRITTEN DISCHARGE INSTRUCTIONS GIVEN TO AND PATIENT. SALINE LOCK REMOVED WITH TIP INTACT. DISCHARGED HOME VIA WHEELCHAIR.
== END 2018-12-17 14:36 | disposition home or self-care (01) ==
LOC: OBSVTIME → D.ER 19:21 → OBSVTIME 20:33 → D.M3 20:33 → D.ER 20:33 → OBSVTIME 12-17 10:52 → D.M3 12-17 14:36
PROVIDERS: Emergency Medicine; ADMIT Internal Medicine Nephrology; ATTEND Internal Medicine Nephrology
DX: D64.9 Anemia, unspecified (principal); N17.9 Acute kidney failure, unspecified; G30.9 Alzheimer's disease, unspecified; F02.80 Dementia in other diseases classified elsewhere, unspecified severity, without behavioral disturbance, psychotic disturbance, mood disturbance, and anxiety; R73.9 Hyperglycemia, unspecified; I10 Essential (primary) hypertension; I73.9 Peripheral vascular disease, unspecified; K21.9 Gastro-esophageal reflux disease without esophagitis; M10.9 Gout, unspecified

== ENCOUNTER 2019-02-23 14:57 | Inpatient (IN) | payer MEDICARE, BC ==
[~2019-02-23] VITALS: Ht 170.2 cm; Wt 69.4 kg
[2019-02-23] MEDS ORDERED: PEPCID AC20 MG PO (15:20)
[2019-02-23] MEDS ORDERED: NAMENDA5 MG PO (15:20)
[2019-02-23 15:49] LABS: BASOPHILS 0.5 % (0-2); EOSINOPHILS 4.7 % (0-7); HEMATOCRIT 42.8 % (42.0-54.0); HEMOGLOBIN 13.7 g/dL (13.5-17.5); IMMATURE GRANULOCYTES 0.1 % (0-5); LYMPHOCYTES 20.4 % (15-50); MCH 31.9 pg (26.0-34.0); MCV 99.8 fL (80.0-100.0); MEAN PLATELET VOLUME 11.9 fL (7.4-10.4); MONOCYTES 11.8 % (2-11); NEUTROPHILS 62.5 % (40-80); PLATELET COUNT 256 10x3/uL (130-400); RBC 4.29 10x6/uL (4.20-6.10); RDW 13.8 % (11.5-14.5); WBC 9.2 10x3/uL (4.8-10.8)
[2019-02-23 15:58] LABS: ANION GAP 13.6 mmol/L (8-16); CALCIUM 9.7 mg/dL (8.5-10.1); CARBON DIOXIDE 24.6 mmol/L (21.0-32.0); CREATININE - SERUM 2.1 mg/dL (0.6-1.3); POTASSIUM - SERUM 4.2 mmol/L (3.5-5.1)
[2019-02-23 16:04] LABS: ALBUMIN 3.6 g/dL (3.4-5.0); BILIRUBIN - TOTAL 0.27 mg/dL (0.2-1.3); PROTEIN - SERUM 7.1 g/dL (6.4-8.2)
[2019-02-23 16:56] LABS: APPEARANCE CLEAR (CLEAR); BACTERIA FEW /hpf (NEGATIVE); BILIRUBIN NEGATIVE (NEGATIVE); COLOR YELLOW (YELLOW); EPITHELIAL CELLS 0-5 /hpf (0-5); GLUCOSE NEGATIVE (NEGATIVE); KETONE NEGATIVE (NEGATIVE); NITRITE NEGATIVE (NEGATIVE); PROTEIN NEGATIVE (NEGATIVE); RED CELLS - URINE 0-5 /hpf (0-5); SPECIFIC GRAVITY 1.015 (1.005-1.020); UROBILINOGEN NORMAL (NORMAL)
[2019-02-23 17:32] VITALS: BP 126/43
--- NOTE | 2019-02-23 20:42 | NUR ---
RECEIVED FROM ER, PT HAS DEMENTIA, PROVIDE MEDS AND HISTORY, WILL BRING MEDS LIST IN AM TO CONFIRM MED, IV-NS @100-L.HAND, PLACED ON TELEMTRY, ROXI ALARM IS ON, BED IS LOW, SRX3, CALL LIGHT IN REACH, WILL CONTINUE PLAN OF CARE
[2019-02-23 21:35] VITALS: BP 135/43; BMI 24.1
[2019-02-24] VITALS: BP 133/53
--- NOTE | 2019-02-24 03:34 | NUR ---
I have reviewed this patient and I concur with the Shift Assessment completed by the Licensed Practical Nurse today this shift.
[2019-02-24 04:00] VITALS: BP 149/64
[2019-02-24 04:56] LABS: ANION GAP 11.6 mmol/L (8-16); CALCIUM 9.6 mg/dL (8.5-10.1); CARBON DIOXIDE 24.5 mmol/L (21.0-32.0); CREATININE - SERUM 1.9 mg/dL (0.6-1.3); POTASSIUM - SERUM 4.1 mmol/L (3.5-5.1)
[2019-02-24 05:21] LABS: BASOPHILS 0.4 % (0-2); EOSINOPHILS 6.1 % (0-7); HEMATOCRIT 37.9 % (42.0-54.0); HEMOGLOBIN 12.1 g/dL (13.5-17.5); IMMATURE GRANULOCYTES 0.3 % (0-5); LYMPHOCYTES 21.7 % (15-50); MCH 31.9 pg (26.0-34.0); MCHC 31.9 g/dL (31.0-37.0); MEAN PLATELET VOLUME 11.8 fL (7.4-10.4); MONOCYTES 11.1 % (2-11); NEUTROPHILS 60.4 % (40-80); PLATELET COUNT 220 10x3/uL (130-400); RBC 3.79 10x6/uL (4.20-6.10); RDW 13.5 % (11.5-14.5); WBC 7.7 10x3/uL (4.8-10.8)
[2019-02-24 08:17] VITALS: BP 160/63
--- NOTE | 2019-02-24 08:56 | NUR ---
PATIENT IS RESTING ON HIS RIGHT SIDE. HE DENIES ANY NEEDS AT THIS TIME. CHANGED HIS BEDDING AHHoang HAD SWEAT AND URINATED THROUGH HIS PULL UP. HE WAS CONFUSED AND NEEDED REORIENTED SEVERAL TIMES. BED ALARM ON.
[2019-02-24 11:43] VITALS: BP 103/34
[2019-02-24 13:11] VITALS: BMI 23.9
[2019-02-24 15:04] VITALS: BP 137/43
[2019-02-24 15:20] VITALS: Ht 170.2 cm; Wt 69.4 kg
[2019-02-24 15:48] LABS: % SATURATION 19 % (15-55); IRON 55 ug/dl (35-150); TOTAL IRON BIND CAPACITY 278 ug/dl (260-445); UNSAT IRON BIND CAPACITY 223 ug/dl (150-375)
--- NOTE | 2019-02-24 19:20 | NUR ---
REPORT RECIEVED AND ROUNDING COMPLETE. PATIENT LAYING IN BED ON RIGHT SIDE. PATIENT HAS A LEFT HAND/WRIST PIV THAT IS PATENT BUT CONTINOUSLY BEEPS BECAUSE OF PLACEMENT. I ASKED PATIENT TO HOLD HIS HAND ON A PILLOW, HIS REPONSE WAS I HAVE DONE THIS BEFORE I DONT NEED YOU TELL ME WHAT TO DO. PATIENT STATES HE NEEDS NOTHING FROM ME AT THIS TIME BESIDES ME TO LEAVE HIM ALONE. BED ALARM IS ON AND CALL LIGHT WITHIN REACH. BED IS IN LOWEST LOCKED POSITION.
[2019-02-24 20:00] VITALS: BP 136/48
[2019-02-25 04:00] VITALS: BP 101/61
--- NOTE | 2019-02-25 07:20 | NUR ---
RECIEVED REPORT. RESTING IN BED WITH EYES CLOSED. SINUS RYTHM WITH BBB ON TELEMETRY. NO SIGNS OF DISTRESS. CONTINUE PLAN OF CARE AND SAFETY PRECAUTIONS.
[2019-02-25 08:13] VITALS: BP 151/49
[2019-02-25 09:01] LABS: BASOPHILS 0.7 % (0-2); EOSINOPHILS 6.6 % (0-7); HEMATOCRIT 39.8 % (42.0-54.0); HEMOGLOBIN 12.7 g/dL (13.5-17.5); LYMPHOCYTES 20.1 % (15-50); MCH 31.5 pg (26.0-34.0); MCHC 31.9 g/dL (31.0-37.0); MCV 98.8 fL (80.0-100.0); MEAN PLATELET VOLUME 12.1 fL (7.4-10.4); NEUTROPHILS 63.6 % (40-80); PLATELET COUNT 183 10x3/uL (130-400); RBC 4.03 10x6/uL (4.20-6.10); RDW 13.4 % (11.5-14.5); WBC 6.9 10x3/uL (4.8-10.8)
[2019-02-25 09:10] LABS: ANION GAP 12.7 mmol/L (8-16); CALCIUM 9.8 mg/dL (8.5-10.1); CARBON DIOXIDE 24.1 mmol/L (21.0-32.0); CREATININE - SERUM 1.6 mg/dL (0.6-1.3); POTASSIUM - SERUM 3.8 mmol/L (3.5-5.1)
[2019-02-25 11:13] VITALS: BP 118/58
--- NOTE | 2019-02-25 13:00 | MORECARE ---
CASE MANAGEMENT DISCHARGE SUMMARY PATIENT: HUMERA DRAKE UNIT: [id number] ADM DATE: 02/23/19 AGE: 88 : 32 SEX: M ROOM/BED: D.2107 AUTHOR: NELA CHEN PHYSICIAN: REFERRING PHYSICIAN: SUSANNAH KOVACS MD DATE OF SERVICE: 02/25/19 Discharge Plan Patient Name: HUMERA DRAKE [facility] [facility] 1930 Planned Disposition: [facility] Facility Anticipated Discharge Date: Discharge Date: Expected LOS: Initial Reviewer: [id number] Initial Review Date: 02/23/2019 Generated: 02/25/19 2:00 pm DCPIA - Discharge Planning Initial Assessment Updated by [email or web address]: Tripp Catherine on 02/25/19 12:56 pm * Is the patient Alert and Oriented? Yes * How many steps to enter\exit or inside your home? NONE * PCP DR. NIX * Pharmacy [facility]. * Preadmission Environment Home with Family * ADLs Partial Dependent * Partial ADLs (Assistance needed) Medication Management * Equipment Cane Nebulizer Walker Wheelchair * Other Equipment [employer] - MEDICAL EQUIPMENT PROVIDER PREFERENCE * List name and contact numbers for known caregivers / representatives who currently or will assist patient after discharge: RYAN DRAKE, SPOUSE, * Verbal permission to speak to the caregivers and representatives has been obtained from the patient. Yes * Community resources currently utilized None * Please name any agencies selected above. NONE * Additional services required to return to the preadmission environment? Yes * Can the patient safely return to the preadmission environment? Yes * Has this patient been hospitalized within the prior 30 days at any hospital? No Patient Name: HUMERA DRAKE Page 72320 at 1300 All edits/amendments must be made on the electronic document DICTATION DATE: 02/25/19 1300 INSERTER PROMOTIONAL ITEM: REX 02/25/19 1300 RPT#: [id number] DC DATE: STATUS: ADM IN [facility] [address] [place] [id number] END OF REPORT
--- NOTE | 2019-02-25 13:08 | MORECARE ---
CASE MANAGEMENT DISCHARGE SUMMARY PATIENT: HUMERA DRAKE UNIT: [id number] ADM DATE: 02/23/19 AGE: 88 : 32 SEX: M ROOM/BED: D.2102 AUTHOR: APRIL,DOC PHYSICIAN: REFERRING PHYSICIAN: SUSANNAH KOVACS MD DATE OF SERVICE: 02/25/19 Discharge Plan Patient Name: HUMERA DRAKE Facility: [facility]:[place] : 1930 Planned Disposition: [facility] Facility Anticipated Discharge Date: Discharge Date: Expected LOS: Initial Reviewer: [email or web address] Initial Review Date: 02/23/2019 Generated: 02/25/19 2:07 pm Comments DCP- Discharge Planning Updated by [email or web address]: Tripp Catherine on 02/25/19 12:[address] Patient Name: HUMERA DRAKE Admission Status: ER Accout number: [id number] Admission Date: 02-23-2019 : 1930 Admission Diagnosis: Attending: SUSANNAH KOVACS Current LOS: 2 Anticipated DC Date: Planned Disposition: [facility] Facility Primary Insurance: MEDICARE A & B PLANNED EXTERNAL PROVIDER: [facility], MEDICARE REHAB BED Discharge Planning Comments: CM RECEIVED ORDER FOR DISCHARGE DISPOSITION. CM MET WITH PT IN ROOM TO DISCUSS DISCHARGE PLANNING AND NEEDS. PT REPORTS LIVING AT HOME INDEPENDENTLY WITH HIS WHO ASSIST WITH MANAGING MEDICATIONS. PT HAS CANE, NEBULIZER, WALKER AND WHEELCHAIR FROM [facility]. PT HAS NO OUTSIDE SERVICES ASSISTING IN THE HOME. CM DISCUSSED AVAILABILITY OF HOME HEALTH, REHAB SERVICES AND MEDICAL EQUIPMENT. PT REPORTS HE NEEDS REHAB AND TO CALL HIS TO DISCUSS THIS. CM CALLED AND SPOKE TO RYAN VARGAS, SPOUSE, . RYAN WOULD LIKE FOR PT TO GO TO [facility] FOR REHAB PT HAS BEEN THERE THIS YEAR AND LIKED IT THERE. CHOICE LETTER COMPLETED. ORDER FOR PHYSICAL THERAPY EVALUATION OBTAINED.. CM TO FAX REFERRAL TO [facility] ONCE PHYISCAL THERAPY EVALUATION IS DOCUMENTED. Wire Drawer: Tripp Catherine DCPIA - Discharge Planning Initial Assessment Updated by [id number]: Tripp Catherine on 02/25/19 12:56 pm * Is the patient Alert and Oriented? Yes * How many steps to enter\exit or inside your home? NONE * PCP DR. NIX * Pharmacy [facility]. * Preadmission Environment Home with Family * ADLs Partial Dependent * Partial ADLs (Assistance needed) Medication Management * Equipment Cane Nebulizer Walker Wheelchair * Other Equipment [employer] - MEDICAL EQUIPMENT PROVIDER PREFERENCE * List name and contact numbers for known caregivers / representatives who currently or will assist patient after discharge: RYAN DRAKE, SPOUSE, * Verbal permission to speak to the caregivers and representatives has been obtained from the patient. Yes * Community resources currently utilized None * Please name any agencies selected above. NONE * Additional services required to return to the preadmission environment? Yes * Can the patient safely return to the preadmission environment? Yes * Has this patient been hospitalized within the prior 30 days at any hospital? No Coverage Notice Reviewer: [id number] Tala Catherine Notice Issued Date-Time: 02/25/2019 12:52 Notice Type: Patient Choice Letter Notice Delivered To: Family Member Relationship to Patient: Spouse Cognos Architect Name: RYAN DRAKE Delivery Method: HAND - Hand Delivered Jacqueline Days: Prior Verbal Notification: Recipient Understood Notice: Yes Recipient Signature: Yes Med Rec Note Co-signed by Attending: Coverage Notice Comment: MONICA Polo DP export: 02/25/19 12:00 p Patient Name: HUMERA DRAKE Page [id number] at 1308 All edits/amendments must be made on the electronic document DICTATION DATE: 02/25/19 1307 ANIMATION PRODUCER: REX 02/25/19 1307 RPT#: [id number] DC DATE: STATUS: ADM IN [facility] [address] [place] [address] END OF REPORT
[2019-02-25 15:06] VITALS: BP 125/46
--- NOTE | 2019-02-25 18:33 | NUR ---
CONFUSED. ASSIST OUT OF CHAIR TO BED. SPOUSE AT BEDSIDE. BED ALARM ON. TELEMETRY REMOVED. REFUSE TELEMETRY. DENIES ANY NEEDS. CONTINUE PLAN OF CARE AND SAFETY PRECAUTIONS.
--- NOTE | 2019-02-25 19:45 | NUR ---
PT RESTING IN BED ALERT BUT CONFUSED. PT RR EVEN AND UNLABORED AT THIS TIME. NO S/S OF DISTRESS. VITALS STABLE. BED LOW CALL LIGHT WITHIN REACH . WILL CONTINUE TO MONITOR.
[2019-02-25 20:00] VITALS: BP 160/55
[2019-02-26] VITALS: BP 127/53
--- NOTE | 2019-02-26 01:02 | NUR ---
PT RECIEVED FULL BEDBATH AND LINEN CHANGE. WILL CONTINUE TO MONITOR.
--- NOTE | 2019-02-26 03:57 | NUR ---
CHANGED PT'S BRIEF. PT ALERT RESTING IN BED. RR EVEN AND UNLABORED. NO S/S OF DISTRESS. BED LOW CALL LIGHT WITHIN REACH. WILL CONTINUE TO MONITOR.
[2019-02-26 04:00] VITALS: BP 153/67
--- NOTE | 2019-02-26 08:08 | NUR ---
PT RESTING. RR EVEN AND UNLABORED. DENIES NEEDS OR PAIN AT THIS TIME. STATED HE IS WAITING ON TO ARRIVE. BED IN LOWEST POSITION. ALL LIGHT WITHIN REACH. WILL CONTINUE TO MONITOR.
[2019-02-26 08:28] VITALS: BP 167/78
--- NOTE | 2019-02-26 09:49 | MORECARE ---
CASE MANAGEMENT DISCHARGE SUMMARY PATIENT: HUMERA DRAKE UNIT: [id number] ADM DATE: 02/23/19 AGE: 88 : 32 SEX: M ROOM/BED: D.2108 AUTHOR: APRIL,DOC PHYSICIAN: REFERRING PHYSICIAN: SUSANNAH KOVACS MD DATE OF SERVICE: 02/26/19 Discharge Plan Patient Name: HUMERA DRAKE Facility: [facility]:[place] : 1930 Planned Disposition: Intermediate Facility Anticipated Discharge Date: 02/26/19 Discharge Date: Expected LOS: 3 Initial Reviewer: [id number] Initial Review Date: 02/23/2019 Generated: 02/26/19 10:49 am DCP- Discharge Planning Updated by [email or web address]: Tripp Catherine on 02/25/19 12:[address] Patient Name: HUMERA DRAKE Admission Status: ER Accout number: [id number] Admission Date: 02-23-2019 : 1930 Admission Diagnosis: Attending: SUSANNAH KOVACS Current LOS: 2 Anticipated DC Date: Planned Disposition: Intermediate Facility Primary Insurance: MEDICARE A & B PLANNED EXTERNAL PROVIDER: [facility], MEDICARE REHAB BED Discharge Planning Comments: CM RECEIVED ORDER FOR DISCHARGE DISPOSITION. CM MET WITH PT IN ROOM TO DISCUSS DISCHARGE PLANNING AND NEEDS. PT REPORTS LIVING AT HOME INDEPENDENTLY WITH HIS WHO ASSIST WITH MANAGING MEDICATIONS. PT HAS CANE, NEBULIZER, WALKER AND WHEELCHAIR FROM [facility]. PT HAS NO OUTSIDE SERVICES ASSISTING IN THE HOME. CM DISCUSSED AVAILABILITY OF HOME HEALTH, REHAB SERVICES AND MEDICAL EQUIPMENT. PT REPORTS HE NEEDS REHAB AND TO CALL HIS TO DISCUSS THIS. CM CALLED AND SPOKE TO RYAN VARGAS, SPOUSE, . RYAN WOULD LIKE FOR PT TO GO TO [facility] FOR REHAB PT HAS BEEN THERE THIS YEAR AND LIKED IT THERE. CHOICE LETTER COMPLETED. ORDER FOR PHYSICAL THERAPY EVALUATION OBTAINED.. CM TO FAX REFERRAL TO [facility] NURSING AND RHEAB ONCE PHYISCAL THERAPY EVALUATION IS DOCUMENTED. Photographic Machine Operator: Tripp Catherine DCPIA - Discharge Planning Initial Assessment Updated by [id number]: Tripp Catherine on 02/25/19 12:56 pm * Is the patient Alert and Oriented? Yes * How many steps to enter\exit or inside your home? NONE * PCP DR. NIX * Pharmacy [facility]. * Preadmission Environment Home with Family * ADLs Partial Dependent * Partial ADLs (Assistance needed) Medication Management * Equipment Cane Nebulizer Walker Wheelchair * Other Equipment [employer] - MEDICAL EQUIPMENT PROVIDER PREFERENCE * List name and contact numbers for known caregivers / representatives who currently or will assist patient after discharge: RYAN DRAKE, SPOUSE, * Verbal permission to speak to the caregivers and representatives has been obtained from the patient. Yes * Community resources currently utilized None * Please name any agencies selected above. NONE * Additional services required to return to the preadmission environment? Yes * Can the patient safely return to the preadmission environment? Yes * Has this patient been hospitalized within the prior 30 days at any hospital? No Coverage Notice Reviewer: [id number] Tala Catherine Notice Issued Date-Time: 02/25/2019 12:52 Notice Type: Patient Choice Letter Notice Delivered To: Family Member Relationship to Patient: Spouse Custom Wood Stair Builder Name: RYAN DRAKE Delivery Method: HAND - Hand Delivered Jacqueline Days: Prior Verbal Notification: Recipient Understood Notice: Yes Recipient Signature: Yes Med Rec Note Co-signed by Attending: Coverage Notice Comment: MONICA DE LA CRUZ export: 02/25/19 12:08 p Patient Name: HUMERA DRAKE Page 85051 at 0949 All edits/amendments must be made on the electronic document DICTATION DATE: 02/26/19948 COMMUNITY HEALTH EDUCATION COORDINATOR: REX 02/26/1947 RPT#: [id number] DC DATE: STATUS: ADM IN [facility] [address] [place] [address] END OF REPORT
--- NOTE | 2019-02-26 10:02 | MORECARE ---
CASE MANAGEMENT DISCHARGE SUMMARY PATIENT: HUMERA DRAKE UNIT: [id number] ADM DATE: 02/23/19 AGE: 88 : 32 SEX: M ROOM/BED: D.2107 AUTHOR: APRIL,DOC PHYSICIAN: REFERRING PHYSICIAN: SUSANNAH KOVACS MD DATE OF SERVICE: 02/26/19 Discharge Plan Patient Name: HUMERA DRAKE Facility: [facility]:[place] : 1930 Planned Disposition: Detention Facility Anticipated Discharge Date: 02/26/19 Discharge Date: Expected LOS: 3 Initial Reviewer: [id number] Initial Review Date: 02/23/2019 Generated: 02/26/19 11:02 am Comments DCP- Discharge Planning Updated by [id number]: Tripp Catherine on 02/26/19 9:[address] Patient Name: HUMERA DRAKE Encounter No: [id number] : 1930 Primary Insurance: MEDICARE A & B Anticipated DC Date: 02-26-2019 Planned Disposition: Detention Facility External Planned Provider: [facility], MEDICARE REHAB BED DCP follow-up note: CM RECEIVED CALL FROM PT'S , RYAN, WHO ASKED THAT CM SEND REFERRAL SOON POSSIBLE THE DOCTOR HAS TOLD HER THAT THEY PLAN TO DISCHARGE TODAY FROM HOSPITAL. CM REVIEWED CHART. CM FAXED REFERRAL TO [facility] VIA T[facility]A [facility] AT [phone]. CM NOTIFIED TANYA OF REFERRAL AND PLANNED DISCHARGE TODAY, . CM WAITING ADMISSION DETERMINATION FROM [facility] FOR REHAB SERVICES. JOE Boss DCP- Discharge Planning Updated by [id number]: Tripp Catherine on 02/25/19 12:[address] Patient Name: HUMERA DRAKE Admission Status: ER Accout number: [id number] Admission Date: 02-23-2019 : 1930 Admission Diagnosis: Attending: SUSANNAH KOVACS Current LOS: 2 Anticipated DC Date: Planned Disposition: Detention Facility Primary Insurance: MEDICARE A & B PLANNED EXTERNAL PROVIDER: [facility], MEDICARE REHAB BED Discharge Planning Comments: CM RECEIVED ORDER FOR DISCHARGE DISPOSITION. CM MET WITH PT IN ROOM TO DISCUSS DISCHARGE PLANNING AND NEEDS. PT REPORTS LIVING AT HOME INDEPENDENTLY WITH HIS WHO ASSIST WITH MANAGING MEDICATIONS. PT HAS CANE, NEBULIZER, WALKER AND [facility]. PT HAS NO OUTSIDE SERVICES ASSISTING IN THE HOME. CM DISCUSSED AVAILABILITY OF HOME HEALTH, REHAB SERVICES AND MEDICAL EQUIPMENT. PT REPORTS HE NEEDS REHAB AND TO CALL HIS TO DISCUSS THIS. CM CALLED AND SPOKE TO RYAN VARGAS, SPOUSE, . RYAN WOULD LIKE FOR PT TO GO TO [facility] FOR REHAB PT HAS BEEN THERE THIS YEAR AND LIKED IT THERE. CHOICE LETTER COMPLETED. ORDER FOR PHYSICAL THERAPY EVALUATION OBTAINED.. CM TO FAX REFERRAL TO [facility] ONCE PHYISCAL THERAPY EVALUATION IS DOCUMENTED. Paper Steamer: Tripp Catherine COPIA - Discharge Planning Initial Assessment Updated by [id number]: Tripp Catherine on 02/25/19 12:56 pm * Is the patient Alert and Oriented? Yes * How many steps to enter\exit or inside your home? NONE * PCP DR. NIX * Pharmacy [facility]. * Preadmission Environment Home with Family * ADLs Partial Dependent * Partial ADLs (Assistance needed) Medication Management * Equipment Cane Nebulizer Walker Wheelchair * Other Equipment [employer] - MEDICAL EQUIPMENT PROVIDER PREFERENCE * List name and contact numbers for known caregivers / representatives who currently or will assist patient after discharge: RYAN DRAKE, SPOUSE, * Verbal permission to speak to the caregivers and representatives has been obtained from the patient. Yes * Community resources currently utilized None * Please name any agencies selected above. NONE * Additional services required to return to the preadmission environment? Yes * Can the patient safely return to the preadmission environment? Yes * Has this patient been hospitalized within the prior 30 days at any hospital? No External Providers External Provider: [facility] Next Contact Date: 02/26/2019 Service Request Date: Service Type: Resolution: Reviewer: Comments: Coverage Notice Reviewer: [id number] Tala Catherine Notice Issued Date-Time: 02/25/2019 12:52 Notice Type: Patient Choice Letter Notice Delivered To: Family Member Relationship to Patient: Spouse Inspector Exhaust Emissions Name: RYAN DRAKE Delivery Method: HAND - Hand Delivered Jacqueline Days: Prior Verbal Notification: Recipient Understood Notice: Yes Recipient Signature: Yes Med Rec Note Co-signed by Attending: Coverage Notice Comment: MONICA Polo DP export: 02/26/19 8:49 a Patient Name: HUMERA DRAKE Page 55655 at 1002 All edits/amendments must be made on the electronic document DICTATION DATE: 02/26/19 1002 DURAL MECHANIC: REX 02/26/19 1002 RPT#: [id number] DC DATE: STATUS: ADM IN [facility] [address] [place] [address] END OF REPORT
--- NOTE | 2019-02-26 12:15 | MORECARE ---
CASE MANAGEMENT DISCHARGE SUMMARY PATIENT: HUMERA DRAKE UNIT: [id number] ADM DATE: 02/23/19 AGE: 88 : 32 SEX: M ROOM/BED: D.2107 AUTHOR: APRIL,DOC PHYSICIAN: REFERRING PHYSICIAN: SUSANNAH KOVACS MD DATE OF SERVICE: 02/26/19 Discharge Plan Patient Name: HUMERA DRAKE Facility: [facility]:[place] : 1930 Planned Disposition: Chcf Facility Anticipated Discharge Date: 02/26/19 Discharge Date: Expected LOS: 3 Initial Reviewer: [id number] Initial Review Date: 02/23/2019 Generated: 02/26/19 1:15 pm Comments DCP- Discharge Planning Updated by [id number]: Tripp Catherine on 02/26/19 11:[address] Patient Name: HUMERA DRAKE Encounter No: [id number] : 1930 Primary Insurance: MEDICARE A & B Anticipated DC Date: 02-26-2019 Planned Disposition: Chcf Facility External Planned Provider: [facility], MEDICARE REHAB BED DCP follow-up note: CM RECEIVED CALL FROM JOHN MARRUFO [facility], THEY ARE ACCEPTING TODAY AND WILL SUPERVISOR VENEER SHORTLY. CM NOTIFIED PT AND SPOUSE IN ROOM, BOTH IN AGREEMENT WITH PLAN. IMPORTANT MESSAGE FROM MEDICARE PROVIDED AND EXPLAINED. PRATEEK CORRALES NOTIFIED. FOR DISCHARGE, FAX DISCHARGE INFORMATION TO [facility] AT [phone]. CALL NURSE REPORT TO [facility] AT [phone]. [facility] TO ARRANGE TRANSPORTATION. JOE Boss DCP- Discharge Planning Updated by [id number]: Tripp Catherine on 02/26/19 9:[address] Patient Name: HUMERA DRAKE Encounter No: [id number] : 1930 Primary Insurance: MEDICARE A & B Anticipated DC Date: 02-26-2019 Planned Disposition: Chcf Facility External Planned Provider: [facility], MEDICARE REHAB BED DCP follow-up note: CM RECEIVED CALL FROM PT'S , RYAN, WHO ASKED THAT CM SEND REFERRAL SOON POSSIBLE THE DOCTOR HAS TOLD HER THAT THEY PLAN TO DISCHARGE TODAY FROM HOSPITAL. CM REVIEWED CHART. CM FAXED REFERRAL TO [facility] VIA TAYNA WERNER [facility] AT [phone]. CM NOTIFIED TANYA OF REFERRAL AND PLANNED DISCHARGE TODAY, . CM WAITING ADMISSION DETERMINATION FROM [facility] FOR REHAB SERVICES. Tripp Catherine, CASE MANAGEMENT DCP- Discharge Planning Updated by [id number]: Tripp Catherine on 02/25/19 12:[address] Patient Name: HUMERA DRAKE Admission Status: ER Accout number: [id number] Admission Date: 02-23-2019 : 1930 Admission Diagnosis: Attending: SUSANNAH KOVACS Current LOS: 2 Anticipated DC Date: Planned Disposition: Chcf Facility Primary Insurance: MEDICARE A & B PLANNED EXTERNAL PROVIDER: [facility], MEDICARE REHAB BED Discharge Planning Comments: CM RECEIVED ORDER FOR DISCHARGE DISPOSITION. CM MET WITH PT IN ROOM TO DISCUSS DISCHARGE PLANNING AND NEEDS. PT REPORTS LIVING AT HOME INDEPENDENTLY WITH HIS WHO ASSIST WITH MANAGING MEDICATIONS. PT HAS CANE, NEBULIZER, WALKER AND [facility]. PT HAS NO OUTSIDE SERVICES ASSISTING IN THE HOME. CM DISCUSSED AVAILABILITY OF HOME HEALTH, REHAB SERVICES AND MEDICAL EQUIPMENT. PT REPORTS HE NEEDS REHAB AND TO CALL HIS TO DISCUSS THIS. CM CALLED AND SPOKE TO RYAN VARGAS, SPOUSE, . RYAN WOULD LIKE FOR PT TO GO TO [facility] FOR REHAB PT HAS BEEN THERE THIS YEAR AND LIKED IT THERE. CHOICE LETTER COMPLETED. ORDER FOR PHYSICAL THERAPY EVALUATION OBTAINED.. CM TO FAX REFERRAL TO [facility] AND [facility] ONCE PHYISCAL THERAPY EVALUATION IS DOCUMENTED. Tape Cutting Machine Operator: Tripp Catherine DCPIA - Discharge Planning Initial Assessment Updated by [email or web address]: Tripp Catherine on 02/25/19 12:56 pm * Is the patient Alert and Oriented? Yes * How many steps to enter\exit or inside your home? NONE * PCP DR. NIX * [facility]. * Preadmission Environment Home with Family * ADLs Partial Dependent * Partial ADLs (Assistance needed) Medication Management * Equipment Cane Nebulizer Walker Wheelchair * Other Equipment [employer] - MEDICAL EQUIPMENT PROVIDER PREFERENCE * List name and contact numbers for known caregivers / representatives who currently or will assist patient after discharge: RYAN DRAKE, SPOUSE, * Verbal permission to speak to the caregivers and representatives has been obtained from the patient. Yes * Community resources currently utilized None * Please name any agencies selected above. NONE * Additional services required to return to the preadmission environment? Yes * Can the patient safely return to the preadmission environment? Yes * Has this patient been hospitalized within the prior 30 days at any hospital? No Coverage Notice Reviewer: [id number] Tala Catherine Notice Issued Date-Time: 02/25/2019 12:52 Notice Type: Patient Choice Letter Notice Delivered To: Family Member Relationship to Patient: Spouse Liturgical Music Director Name: RYAN DRAKE Delivery Method: HAND - Hand Delivered Jacqueline Days: Prior Verbal Notification: Recipient Understood Notice: Yes Recipient Signature: Yes Med Rec Note Co-signed by Attending: Coverage Notice Comment: MONICA Reviewer: [id number] Tala Catherine Notice Issued Date-Time: 02/26/2019 12:05 Notice Type: IM Discharge Notice Notice Delivered To: Family Member Relationship to Patient: Spouse Liturgical Music Director Name: RYAN DRAKE Delivery Method: HAND - Hand Delivered Jacqueline Days: Prior Verbal Notification: Recipient Understood Notice: Yes Recipient Signature: Yes Med Rec Note Co-signed by Attending: Coverage Notice Comment: Last DP export: 02/26/19 9:02 a Patient Name: HUMERA DRAKE Page 97671 at 1215 All edits/amendments must be made on the electronic document DICTATION DATE: 02/26/19 [address] ATTENDANT: REX 02/26/19 1215 RPT#: [id number] DC DATE: STATUS: ADM IN [facility] [address] [place] [address] END OF REPORT
--- NOTE | 2019-02-26 12:23 | MORECARE ---
CASE MANAGEMENT DISCHARGE SUMMARY PATIENT: HUMERA DRAKE UNIT: [id number] ADM DATE: 02/23/19 AGE: 88 : 32 SEX: M ROOM/BED: D.2107 AUTHOR: APRIL,DOC PHYSICIAN: REFERRING PHYSICIAN: SUSANNAH KOVACS MD DATE OF SERVICE: 02/26/19 Discharge Plan Patient Name: HUMERA DRAKE Facility: [facility]:[place] : 1930 Planned Disposition: Fpc Facility Anticipated Discharge Date: 02/26/19 Discharge Date: Expected LOS: 3 Initial Reviewer: [id number] Initial Review Date: 02/23/2019 Generated: 02/26/19 1:22 pm Comments DCP- Discharge Planning Updated by [id number]: Tripp Catherine on 02/26/19 11:[address] Patient Name: HUMERA DRAKE Encounter No: [id number] : 1930 Primary Insurance: MEDICARE A & B Anticipated DC Date: 02-26-2019 Planned Disposition: Fpc Facility External Planned Provider: [facility], MEDICARE REHAB BED DCP follow-up note: CM RECEIVED CALL FROM JOHN MARRUFO [facility], THEY ARE ACCEPTING TODAY AND WILL RETAIL COVERAGE MERCHANDISER SHORTLY. CM NOTIFIED PT AND SPOUSE IN ROOM, BOTH IN AGREEMENT WITH PLAN. IMPORTANT MESSAGE FROM MEDICARE PROVIDED AND EXPLAINED. PRATEEK CORRALES NOTIFIED. FOR DISCHARGE, FAX DISCHARGE INFORMATION TO [facility] AT [phone]. CALL NURSE REPORT TO [facility] AT [phone]. [facility] TO ARRANGE TRANSPORTATION. JOE Boss DCP- Discharge Planning Updated by [id number]: Tripp Catherine on 02/26/19 9:[address] Patient Name: HUMERA DRAKE Encounter No: [id number] : 1930 Primary Insurance: MEDICARE A & B Anticipated DC Date: 02-26-2019 Planned Disposition: Fpc Facility External Planned Provider: [facility], MEDICARE REHAB BED DCP follow-up note: CM RECEIVED CALL FROM PT'S , RYAN, WHO ASKED THAT CM SEND REFERRAL SOON POSSIBLE THE DOCTOR HAS TOLD HER THAT THEY PLAN TO DISCHARGE TODAY FROM HOSPITAL. CM REVIEWED CHART. CM FAXED REFERRAL TO [facility] VIA TANYA W[facility] AT [phone]. CM NOTIFIED TANYA OF REFERRAL AND PLANNED DISCHARGE TODAY, . CM WAITING ADMISSION DETERMINATION FROM [facility] FOR REHAB SERVICES. Tripp Catherine, CASE MANAGEMENT DCP- Discharge Planning Updated by [id number]: Tripp Catherine on 02/25/19 12:[address] Patient Name: HUMERA DRAKE Admission Status: ER Accout number: [id number] Admission Date: 02-23-2019 : 1930 Admission Diagnosis: Attending: SUSANNAH KOVACS Current LOS: 2 Anticipated DC Date: Planned Disposition: Fpc Facility Primary Insurance: MEDICARE A & B PLANNED EXTERNAL PROVIDER: [facility], MEDICARE REHAB BED Discharge Planning Comments: CM RECEIVED ORDER FOR DISCHARGE DISPOSITION. CM MET WITH PT IN ROOM TO DISCUSS DISCHARGE PLANNING AND NEEDS. PT REPORTS LIVING AT HOME INDEPENDENTLY WITH HIS WHO ASSIST WITH MANAGING MEDICATIONS. PT HAS CANE, NEBULIZER, WALKER AND [facility]. PT HAS NO OUTSIDE SERVICES ASSISTING IN THE HOME. CM DISCUSSED AVAILABILITY OF HOME HEALTH, REHAB SERVICES AND MEDICAL EQUIPMENT. PT REPORTS HE NEEDS REHAB AND TO CALL HIS TO DISCUSS THIS. CM CALLED AND SPOKE TO RYAN VARGAS, SPOUSE, . RYAN WOULD LIKE FOR PT TO GO TO [facility] FOR REHAB PT HAS BEEN THERE THIS YEAR AND LIKED IT THERE. CHOICE LETTER COMPLETED. ORDER FOR PHYSICAL THERAPY EVALUATION OBTAINED.. CM TO FAX REFERRAL TO [facility] AND [facility] ONCE PHYISCAL THERAPY EVALUATION IS DOCUMENTED. Accounting Director: Tripp Catherine DCPIA - Discharge Planning Initial Assessment Updated by [email or web address]: Tripp Catherine on 02/25/19 12:56 pm * Is the patient Alert and Oriented? Yes * How many steps to enter\exit or inside your home? NONE * PCP DR. NIX * [facility]. * Preadmission Environment Home with Family * ADLs Partial Dependent * Partial ADLs (Assistance needed) Medication Management * Equipment Cane Nebulizer Walker Wheelchair * Other Equipment [employer] - MEDICAL EQUIPMENT PROVIDER PREFERENCE * List name and contact numbers for known caregivers / representatives who currently or will assist patient after discharge: RYAN DRAKE, SPOUSE, * Verbal permission to speak to the caregivers and representatives has been obtained from the patient. Yes * Community resources currently utilized None * Please name any agencies selected above. NONE * Additional services required to return to the preadmission environment? Yes * Can the patient safely return to the preadmission environment? Yes * Has this patient been hospitalized within the prior 30 days at any hospital? No Coverage Notice Reviewer: [id number] Tala Catherine Notice Issued Date-Time: 02/25/2019 12:52 Notice Type: Patient Choice Letter Notice Delivered To: Family Member Relationship to Patient: Spouse Teachers Aide Name: RYAN DRAKE Delivery Method: HAND - Hand Delivered Jacqueline Days: Prior Verbal Notification: Recipient Understood Notice: Yes Recipient Signature: Yes Med Rec Note Co-signed by Attending: Coverage Notice Comment: MONICA Reviewer: [id number] Tala Catherine Notice Issued Date-Time: 02/26/2019 12:05 Notice Type: IM Discharge Notice Notice Delivered To: Family Member Relationship to Patient: Spouse Teachers Aide Name: RYAN DRAKE Delivery Method: HAND - Hand Delivered Jacqueline Days: Prior Verbal Notification: Recipient Understood Notice: Yes Recipient Signature: Yes Med Rec Note Co-signed by Attending: Coverage Notice Comment: Last DP export: 02/26/19 11:15 a Patient Name: HUMERA DRAKE Page [id number] at 1223 All edits/amendments must be made on the electronic document DICTATION DATE: 02/26/19 1223 SUPERVISOR SCOURING PADS: REX 02/26/19 1223 RPT#: [id number] DC DATE: STATUS: ADM IN [facility] [address] [place] [address] END OF REPORT
[2019-02-26 12:57] VITALS: BP 183/60
--- NOTE | 2019-02-26 13:28 | NUR ---
REPORT CALLED TO [facility].
--- NOTE | 2019-02-26 13:28 | NUR ---
IV D/C WITH CATHETER TIP INTACT. PT'S SPOUSE IS ASSISTING WITH GETTING PT DRESSED.
== END 2019-02-26 15:19 | DRG 682 ==
LOC: D.ER 14:57 → D.M2 19:46
PROVIDERS: Family Medicine; ADMIT Internal Medicine Nephrology; ATTEND Internal Medicine Nephrology
DX: N17.9 Acute kidney failure, unspecified (principal); G93.41 Metabolic encephalopathy; E87.0 Hyperosmolality and hypernatremia; N39.0 Urinary tract infection, site not specified; D64.9 Anemia, unspecified; G30.9 Alzheimer's disease, unspecified; F02.80 Dementia in other diseases classified elsewhere, unspecified severity, without behavioral disturbance, psychotic disturbance, mood disturbance, and anxiety; I10 Essential (primary) hypertension; I73.9 Peripheral vascular disease, unspecified; K21.9 Gastro-esophageal reflux disease without esophagitis; Z86.73 Personal history of transient ischemic attack (TIA), and cerebral infarction without residual deficits

== ENCOUNTER 2019-05-25 11:31 | Emergency (ER) | payer MEDICARE, BC ==
[~2019-05-25] VITALS: Ht 170.2 cm; Wt 80.9 kg
[~2019-05-25 11:31] MED LIST changes: +NAMENDA5 MG PO; +PEPCID AC20 MG PO
[2019-05-25 11:40] VITALS: Ht 170.2 cm; Wt 80.9 kg
[2019-05-25 11:58] LABS: BILIRUBIN NEGATIVE (NEGATIVE); GLUCOSE NEGATIVE (NEGATIVE); KETONE NEGATIVE (NEGATIVE); NITRITE NEGATIVE (NEGATIVE); UROBILINOGEN NORMAL (NORMAL)
[2019-05-25 11:59] LABS: BACTERIA FEW /hpf (NEGATIVE); EPITHELIAL CELLS NSEEN /hpf (0-5); RED CELLS - URINE NONE SEEN /hpf (0-5); WHITE CELLS - URINE 0-5 /hpf (NEGATIVE)
[2019-05-25 12:41] LABS: BASOPHILS 0.3 % (0-2); EOSINOPHILS 0.5 % (0-7); HEMATOCRIT 43.2 % (42.0-54.0); HEMOGLOBIN 13.8 g/dL (13.5-17.5); IMMATURE GRANULOCYTES 0.3 % (0-5); LYMPHOCYTES 10.4 % (15-50); MCH 30.4 pg (26.0-34.0); MCHC 31.9 g/dL (31.0-37.0); MCV 95.2 fL (80.0-100.0); MEAN PLATELET VOLUME 13.3 fL (7.4-10.4); MONOCYTES 11.1 % (2-11); NEUTROPHILS 77.4 % (40-80); PLATELET COUNT 227 10x3/uL (130-400); RBC 4.54 10x6/uL (4.20-6.10); RDW 13.5 % (11.5-14.5); WBC 15.5 10x3/uL (4.8-10.8)
[2019-05-25 12:49] LABS: ANION GAP 16.7 mmol/L (8-16); CALCIUM 9.7 mg/dL (8.5-10.1); CARBON DIOXIDE 23.2 mmol/L (21.0-32.0); CREATININE - SERUM 1.6 mg/dL (0.6-1.3); POTASSIUM - SERUM 3.9 mmol/L (3.5-5.1)
[2019-05-25 12:55] LABS: ALBUMIN 2.7 g/dL (3.4-5.0); BILIRUBIN - TOTAL 0.69 mg/dL (0.2-1.3)
[2019-05-25 15:05] VITALS: BP 129/76
== END 2019-05-25 15:07 | disposition home or self-care (01) ==
LOC: D.ER 11:31
PROVIDERS: Family Medicine
DX: E86.0 Dehydration (principal); G30.9 Alzheimer's disease, unspecified; F02.80 Dementia in other diseases classified elsewhere, unspecified severity, without behavioral disturbance, psychotic disturbance, mood disturbance, and anxiety; K21.9 Gastro-esophageal reflux disease without esophagitis; E07.9 Disorder of thyroid, unspecified; Z86.73 Personal history of transient ischemic attack (TIA), and cerebral infarction without residual deficits; I10 Essential (primary) hypertension